=== PATIENT | male | born 1970 | race Caucasian/White ===

== ENCOUNTER → 2016-11-11 | Outpatient (CLI) | payer MEDICAID ==
[~2016-11-11] MED LIST: ABILIFY5 MG PO; ALBUTEROL2 PUFFS/17 IN; AMARYL2 MG PO; ANASTROZOLE1 MG PO; ASPIRI PO; BACLOFEN 10MG T10 MG PO; BACTRIM DS 8001 TA1 PO; BRINTELLIX10 MG PO; BROMFED DM COU473 ML PO; BUSPAR 5MG TAB5 MG PO; CARVEDILOL3.125 MG PO; CELEXA20 MG PO; CIPRO 500MG TA500 MG PO; DARVOCET-N 1001 EACH PO; DIAZEPAM10 MG PO; DICLOFENAC 50MG50 MG PO; Diclofenac Sod100 MG PO; ETODOLAC400 MG PO; FENOFIBRATE160 MG PO; FLEXERIL10 MG PO; FLOMAX 0.4MG C0.4 MG PO; HUMULIN 70100 UNITS/ SC; HYDROXYZINE50 MG PO; IBU-8800 MG PO; INSULIN GL100 UNITS/ SC; JANUMET 500 MG-1 TAB PO; KEFLEX 500MG.500 MG PO; LANSOPRAZOLE30 MG PO; LANTUS INS100 UNITS/ SC; LIPITOR40 MG PO; LIPITOR80 MG PO; LISINOPRIL 5MG T5 MG NG; MEDROL 4MG. DOSE4 MG PO; MELOXICAM15 MG PO; METFORMIN1000 MG PO; METFORMIN500 MG PO; MULTI VITAMINS1 TA1 PO; NAPROXEN SODIU500 MG PO; NITROGLYCERIN0.4 M1 SL; NORCO 325 MG-101 TAB PO; OXYBUTYNIN5 MG PO; OXYCODONE CR10 MG PO; PERCOCET 10 MG1 EACH PO; PHENERGAN 25MG.25 M1 PO; PLAVIX75 MG PO; PREDNISONE 20MG20 MG PO; PRILOSEC20 MG PO; ROBAXIN500 M1 PO; SAVELLA50 MG PO; SINGULAIR10 MG PO; TESTOSTERON200 MG/ML IM; TIZANIDINE HCL 44 MG NG; VICODIN 5/500 T1 TAB PO; VITAMIN D31000 IU PO; ZANAFLEX4 MG PO; ZYRTEC10 M3 PO
--- NOTE | 2016-11-11 16:59 | RADIOLOGY REPORT PS360 ---
EXAM: LUMBAR SPINE-2 TO 3 VIEWS HISTORY: L2 compression fracture COMPRESSION FX L2 COMPARISON: 07/09/2016 FINDINGS: Mild to moderate anterior wedge compression changes involve L2 as before with loss of height anteriorly of approximately 30% not significant change compared to the previous exam. No retropulsion evident. There remains mild anterolisthesis of L3 on L4 5 mm. Transitional segment is present in the lumbar spine as labeled as L5. Mild tilt of the pelvis with minimal lower lumbar curvature convex right. There is degenerative disc disease at T11-T12 IMPRESSION: 1. Chronic wedge compressive changes of L2 not significant changed 2. Spondylosis of the lumbar spine as described above.
--- NOTE | 2016-11-17 07:32 | RADIOLOGY REPORT PS360 ---
NUC BONE SCAN (LIMITED) CLINICAL INDICATION: Low back pain with right hip pain, L2 compression fracture COMPRESSION FX ORDERING PHYSICIAN: JAMEY VILLALOBOS PATIENT AGE: 46 years DOSE: 25.9 mCi technetium MDP IV. TECHNIQUE: AP, posterior, and lateral planar images are obtained of the lumbar spine and pelvis supplemented with axial, sagittal, and coronal SPECT images. COMPARISON: Radiograph of the same day FINDINGS: There is slight increased activity at the L2 to region. The hips have an unremarkable appearance. SPECT images show increased activity at the L2 vertebral body with also increased activity involving the facets bilaterally at L3 as well as the facets at L2 on both sides. IMPRESSION: 1. Slight increased activity at the L2 vertebral body in keeping with patient's known compression fracture at L2. The appearance of the fracture is unchanged on radiograph. 2. Increased activity involving the right and left facets at L2 and L3 consistent with facet arthritic change
== END ==
LOC: RAD 09:00
DX: S32.020A Wedge compression fracture of second lumbar vertebra, initial encounter for closed fracture (principal)
CPT/HCPCS: A9503

== ENCOUNTER → 2017-04-06 | Outpatient (CLI) | payer MEDICAID | LOC: RT 13:33 | DX: R56.9 Unspecified convulsions (principal) ==

== ENCOUNTER 2017-08-03 14:00 | Observation (INO) | payer MEDICAID ==
[~2017-08-03] VITALS: Ht 182.9 cm; Wt 122.5 kg
[2017-08-03 14:03] VITALS: BP 148/60
[2017-08-03] MEDS ORDERED: BASAGLAR K100 UNIT/1 SQ (14:10)
[2017-08-03 14:34] LABS: LYMPH # 2.2 K/mm3 (0.7-4.5); LYMPH % 37.8 % (10-50)
[2017-08-03 14:40] LABS: HEMOGLOBIN 15.8 g/dL (14.1-18.0)
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
--- OUTSIDE RECORDS SUMMARY | 2017-08-03 15:20 | External Medical Summary Rpt | CCD ---
Author Author [employer]duent Organization Conduent Address Unknown Phone Unavailable Purpose Continuity of Care Document - through 2016
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
--- OUTSIDE RECORDS SUMMARY | 2017-08-03 15:20 | External Medical Summary Rpt | CCD ---
Demographics Preferred Language Salvadorean Marital Status Unknown Evangelical Affiliation Unknown Race Unknown Ethnic Group Unknown Author Author , DAIN GAUTAM Address Unknown Phone Immunization No patient found.
--- OUTSIDE RECORDS SUMMARY | 2017-08-03 15:20 | External Medical Summary Rpt | CCD ---
Demographics Preferred Language Belgian Marital Status Unknown Baptism Affiliation Unknown Race Unknown Ethnic Group Unknown Author Author , DAIN GAUTAM Address Unknown Phone Immunization No patient found.
--- OUTSIDE RECORDS SUMMARY | 2017-08-03 15:20 | External Medical Summary Rpt ---
Author Author DAIN Avila, DAIN [place] Organization DAIN Production Address Unknown Phone Unavailable Results Comprehensive metabolic 2000 panel in Serum or Plasma Observa Value Referen Units Interpr Notes Date tion ce etation Range Albumin/G 1.1 - 1.8 No Normal No Aug 03 lobulin informati informati 2017 2:20 [Mass on in on in PM ratio] in source source Serum or data data Plasma Albumin 3.4 - 5.0 gm/dL Normal No Aug 03 [Mass/vol informati 2017 2:20 ume] in on in PM Serum or source Plasma data Alkaline 46 - 116 U/L Normal No Aug 03 phosphata informati 2016 2:20 se on in PM [Enzymati source c data activity/ volume] in Serum or Plasma Bilirubin 0.2 - 1.0 mg/dL Normal No Aug 03 .total informati 2016 2:20 [Mass/vol on in PM ume] in source Serum or data Plasma Urea 7 - 18 mg/dL High No Aug 03 nitrogen informati 2017 2:20 [Mass/vol on in PM ume] in source Serum or data Plasma Calcium 8.5 - mg/dL Normal No Aug 03 [Mass/vol 10.1 informati 2017 2:20 ume] in on in PM Serum or source Plasma data Chloride 98 - 107 mmoL/L Normal No Aug 03 [Moles/vo informati 2017 2:20 lume] in on in PM Serum or source Plasma data Carbon 21.0 - mmoL/L Normal No Aug 03 dioxide, 32.0 informati 2017 2:20 total on in PM [Moles/vo source lume] in data Serum or Plasma Creatinin 0.70 - mg/dL Normal No Aug 03 e 1.30 informati 2017 2:20 [Mass/vol on in PM ume] in source Serum or data Plasma Creatinin 50 - 200 ML/MIN Normal No Aug 03 e renal informati 2017 2:20 clearance on in PM source predicted data by Cockcroft -Gault formula Estimated >60 ML/MIN No REFERENCE Aug 03 inform RANGE: 2017 2:20 glomerula on in >60 PM r source ML/MIN/1. filtratio data 73 SQUARE n rate METERSIf (GF this patient is -A merican, then multiply theresult by 1.210. Globulin 1.3 - 3.2 gm/dL Normal No Aug 03 [Mass/vol 2016 2:20 ume] in on in PM Serum source data Glucose 74 - 106 mg/dL Normal Aug 03 [Mass/vol inform2016 2:20 ume] in on in PM Serum or source Plasma data Potassium 3.5 - 5.1 mmoL/L Normal Aug 032016 2:20 [Moles/vo on in PM lume] in source Serum or data Plasma Sodium 136 - 145 mmoL/L Normal Aug 03 [Moles/vo 2016 2:20 lume] in on in PM Serum or source Plasma data Aspartate 15 - 37 U/L Normal Aug 032016 2:20 aminotran on in PM sferase source [Enzymati data c activity/ volume] in Serum or Plasma Alanine 12 - 78 U/L Normal Aug 03 aminotran 2016 2:20 sferase on in PM [Enzymati source c data activity/ volume] in Serum or Plasma Protein 6.4 - 8.2 gm/dL Normal Aug 03 [Mass/vol 2016 2:20 ume] in on in PM Serum or source Plasma data CBC W Auto Differential panel in Blood Observa Value Referen Units Interpr Notes Date tion ce etation Range Basophils 0 - 0.2 K/MM3 Normal No Aug 032016 2:20 [#/volume on in PM ] in source Blood by data Automated count Basophils 0.1 - 2.0 % Normal No Aug 03 /100 2016 2:20 leukocyte on in PM s in source Blood by data Automated count Eosinophi 0.0 - 0.4 K/mm3 Normal Aug 03 ls 2016 2:20 [#/volume on in PM ] in source Blood by data Automated count Eosinophi 0.1 - % Normal Aug 03 ls/100 12.0 2016 2:20 leukocyte on in PM s in source Blood by data Automated count Granulocy 1.3 - 8.0 K/mm3 Normal No Aug 03 vivek 2016 2:20 [#/volume on in PM ] in source Blood by data Automated count Granulocy 37.0 - % Normal No Aug 03 vivek/100 80.0 2016 2:20 leukocyte on in PM s in source Blood by data Automated count Hematocri 42.0 - % Normal No Aug 03 t [Volume 52.0 2016 2:20 on in PM Fraction] source of Blood data Hemoglobi 14.1 - g/dL No No Aug 03 n 18.0 informati 2016 2:20 [Mass/vol on in on in PM ume] in source source Blood data data Lymphocyt 0.7 - 4.5 K/mm3 Normal No Aug 03 es 2016 2:20 [#/volume on in PM ] in source Unspecifi data ed specimen by Automated count Lymphocyt 10 - 50 % Normal No Aug 03 es 2016 2:20 [#/volume on in PM ] in source Unspecifi data ed specimen by Automated count Erythrocy 27 - 31.2 pg Normal No Aug 03 te mean 2016 2:20 corpuscul on in PM ar source hemoglobi data n [Entitic mass] Erythrocy 31.8 - g/dl Normal No Aug 03 te mean 35.4 2016 2:20 corpuscul on in PM ar source hemoglobi data n concentra tion [Mass/vol ume] by Automated count Erythrocy 82.2 - fl Normal No Aug 03 te mean 97.8 2016 2:20 corpuscul on in PM ar volume source [Entitic data volume] by Automated count Monocytes 0.1 - 1.0 K/mm3 Normal No Aug 032016 2:20 [#/volume on in PM ] in source Blood by data Automated count Monocytes 1.7 - 9.3 % Normal No Aug 03 /100 informati 2016 2:20 leukocyte on in PM s in source Blood by data Automated count Platelet 7.4 - fl Normal No Aug 03 mean 10.4 2016 2:20 volume on in PM [Entitic source volume] data in Blood by Automated count Platelets 142 - 424 K/mm3 No No Aug 03 informati informati 2016 2:20 [#/volume on in on in PM ] in source source Blood data data Erythrocy 4.6 - 6.2 M/mm3 Normal No Aug 03 vivek ati 2017 2:20 [#/volume on in PM ] in source Amniotic data fluid Erythrocy 11.5 - % Normal No Aug 03 te 17.5 informati 2017 2:20 distribut on in PM ion width source [Entitic data volume] by Automated count Leukocyte 4.8 - K/MM3 Normal No Aug 03 s 10.8 informati 2017 2:20 [#/volume on in PM ] in source Blood data
--- OUTSIDE RECORDS SUMMARY | 2017-08-03 15:20 | External Medical Summary Rpt ---
Author Author DAIN Avila, DAIN [place] Organization DAIN Production Address Unknown Phone Unavailable [...]
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
--- OUTSIDE RECORDS SUMMARY | 2017-08-03 16:33 | External Medical Summary Rpt | CCD ---
Demographics Preferred Language Citizen Of [place] Marital Status Unknown Amish Affiliation Unknown Race Unknown Ethnic Group Unknown Author Author , DAIN GAUTAM Address Unknown Phone Immunization No patient found.
--- OUTSIDE RECORDS SUMMARY | 2017-08-03 16:33 | External Medical Summary Rpt | CCD ---
Demographics Preferred Language Maltese Marital Status Unknown Jainism Affiliation Unknown Race Unknown Ethnic Group Unknown Author Author , DAIN GAUTAM Address Unknown Phone Immunization No patient found.
--- OUTSIDE RECORDS SUMMARY | 2017-08-03 16:33 | External Medical Summary Rpt | CCD ---
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 Role Phone Lillian Tan MD, Unavailable Unavailable Lillian Tan MD Purpose Continuity of Care Document - 06-21-2013 through 2016 Problems Code Diagnosis DOS Provider Status 250.00 250.00 DIAB 06-21-2013 [facility], TYPE Hospital II OR UNSPEC TYPE, NOT UNCNTRLD 272.4 272.4 06-21-2013 [place] HYPERLIPIDE [facility] NEC/NOS Hospital 401.9 401.9 06-21-2013 [place] HYPERTENSIO [facility] N NOS Hospital 412 412 OLD 06-21-2013 [place] MYOCARDIAL [facility] INFARCT Hospital 413.9 413.9 06-21-2013 [place] ANGINA [facility] PECTORIS [facility] NEC/NOS 995.1 995.1 06-21-2013 [place] ANGIONEUROT [facility] IC EDEMA Hospital E928.9 E928.9 06-21-2013 [place] ACCIDENT [facility] V12.54 V12.54 06-21-2013 [place] PERSONAL HX [facility] OF TIA,& Hospital CEREBRAL INFARCTION W/OUT RES DEFICITS V14.8 V14.8 06-21-2013 [facility]-DRUG [facility] ALLERGY [facility] Hospital V45.89 V45.89 06-21-2013 [place] POSTSURGICA [facility] V58.67 V58.67 06-21-2013 [place] LONG-TERM [facility] (CURRENT) Hospital USE OF INSULIN V58.69 V58.69 OTH 06-21-2013 [place] [facility],LT,CURR [facility] ENT USE Hospital J06.9 ACUTE UPPER [...] Tan MD (ER) 3 14:31 3 15:18 [facility]
--- OUTSIDE RECORDS SUMMARY | 2017-08-03 16:34 | External Medical Summary Rpt ---
Author Author DAIN Avila, DAIN [employer] Address Unknown Phone Unavailable Results Comprehensive [...]
--- OUTSIDE RECORDS SUMMARY | 2017-08-03 16:34 | External Medical Summary Rpt ---
Author Author DAIN Avila, DAIN [employer] Address Unknown Phone Unavailable [...]
[2017-08-03 17:45] VITALS: BP 127/60
[2017-08-03 19:52] VITALS: BP 130/88
[2017-08-03 20:20] VITALS: BP 130/88
[2017-08-04] VITALS (15 sets, daily range): BP systolic 129–201; BP diastolic 55–116
[2017-08-04] MEDS ORDERED: LIPITOR40 MG PO (01:52)
[2017-08-04] MEDS ORDERED: LISINOPRIL 10MG10 MG PO (02:04)
[2017-08-04] MEDS ORDERED: GABAPENTIN300 MG PO (02:05)
[2017-08-04] MEDS ORDERED: OMEPRAZOLE40 MG PO (02:05)
[2017-08-04] MEDS ORDERED: MELOXICAM15 MG PO (02:06)
[2017-08-04] MEDS ORDERED: BRINTELLIX10 MG PO (02:10)
[2017-08-04] MEDS ORDERED: ZOFRAN4 MG PO (02:11)
[2017-08-04] MEDS ORDERED: SYMBICORT1 AE1 IH (02:12)
[2017-08-04 06:59] LABS: HEMOGLOBIN 14.5 g/dL (14.1-18.0); LYMPH # 2.4 K/mm3 (0.7-4.5)
--- NOTE | 2017-08-04 07:14 | PHARMACY CLINIC NOTE ---
Patient Demographics Patient Demographics Admission date: 08/03/17 Date: 08/04/17 Time: 0713 Allergies Coded Allergies: duloxetine (From CYMBALTA) (Intermediate, I-HIVES 06/23/16) Penicillins (Mild, 10/26/15) gemfibrozil (From LOPID) (Mild, 10/26/15) phenytoin (From DILANTIN) (Mild, 10/26/15) HEIGHT- FT: 6 IN: 0.00 K.134 VTE General Information Labs: Laboratory Tests 08/04 08/03 0605 1420 Hematology Hgb (14.1 - 18.0 g/dL) 14.5 15.8 Hct (42.0 - 52.0 %) 42.0 46.1 Plt Count (142 - 424 K/mm3) 160 172 Disclaimer The following section includes nursing documentation that has been pulled in for pharmacy review. Patient's VTE score: 4 Patient's VTE Risk: LOW RISK Clinical trial participant? No VTE prophylaxis NQF [id number] VTE prophylaxis ordered? Yes Type of prophylaxis/treatment: MARSHA Rodriguez at 0713
[2017-08-04] MEDS ORDERED: ARIPIPRAZOLE10 MG PO (07:33)
--- NOTE | 2017-08-04 08:33 | HISTORY AND PHYSICAL REPORT ---
Demographics: Admit date: 08/03/17 Chief complaint: pt with chest pain PRIMARY DIAGNOSIS: UNSTABLE ANGINA Allergies: Coded Allergies: duloxetine (From CYMBALTA) (Intermediate, I-HIVES 06/23/16) Penicillins (Mild, 10/26/15) gemfibrozil (From LOPID) (Mild, 10/26/15) phenytoin (From DILANTIN) (Mild, 10/26/15) Past medical history: Family HX Diabetes Yes CAD Yes Hypertension Yes Hyperlipidemia No Cancer Yes TB No Immunization HX Ped.Immunizations UTD Yes DT/Tetanus 5-10 Years Ago Flu 2015-FSN Pneumonia Received In Past TB Test in last year No General CAD? Yes Angina: Yes DC: Yes Hypertension? Yes Hyperlipidemia? Yes CHF? No DVT? No PE? No COPD? Yes Asthma? No Anemia? No GERD? Yes Gastric ulcers? No GI Bleed? No Hernia? Yes Thyroid Problems? No Hypothyroidism? No CVA? Yes Seizures? Yes Diabetes? Yes Insulin Dependent: Yes Insulin Pump: No Home FSBS? Yes Renal Insuffiency? No UTI? No Stones? Yes BPH? Yes GB Disease: Yes Nephritic Syndrome? No Asplenia? No Hepatitis? No Sickle Cell Disease? No Arthritis? Yes Migraines? Yes Cataracts? No Glaucoma? Yes MRSA? Yes HIV? No TB? No Anxiety? Yes Depression? Yes Cancer? No More? Yes Additional hx: BIPOLAR, ODD SCHIZOPHRENIA Current home meds: Reported Medications Montelukast Sodium (Singulair) 10 MG PO QHS Fenofibrate (Fenofibrate 160MG (GEQ: Lofibra)) 134 MG PO DAILY Buspirone Hcl (Buspirone HCl) 15 MG PO TID TAMSULOSIN HCL (Flomax 0.4MG) 0.4 MG PO QHS Insulin Glargine,Hum.rec.anlog (Basaglar Kwikpen U-100) 20 UNIT SQ QHS #15 Atorvastatin Calcium (Atorvastatin) 20 MG PO DAILY LISINOPRIL (Lisinopril) 10 MG PO DAILY Gabapentin (Gabapentin 300MG) 300 MG PO TID Omeprazole (Omeprazole 40MG) 40 MG PO DAILY Meloxicam (Meloxicam 15MG) 15 MG PO DAILY Vortioxetine Hydrobromide (Brintellix) 10 MG PO QPM ONDANSETRON HCL (Zofran 4MG Tab) 4 MG PO TIDP PRN NAUSEA BUDESONIDE/FORMOTEROL FUMARATE (Symbicort 160-4.5 Mcg Inhaler) 2 PUFF IH DAILY Aripiprazole 10 MG PO QHS #30 Aspirin (Chewable Aspirin) 81 MG PO DAILY Carvedilol (Carvedilol 3.125MG) 3.125 MG PO BID Nitroglycerin 0.4 MG SL PRN Social Hx: Smoking HX Tobacco No Packs/day N/A Are you/the child exposed to second-hand smoke: Yes Alcohol Alcohol: Yes How much do you drink LIQUOR ON THE WEEKENDS For how long Longer Than 5 Years When was your last drink 48-72 Hours Ago Hx of Drug Use Drug Use? No
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
--- NOTE | 2017-08-04 11:56 | RADIOLOGY REPORT PS360 ---
CARDIAC CATHETERIZATION DATE OF CATHETERIZATION:08/04/2017 11:14 AM PROCEDURES: 1. Left heart catheterization 2. Left ventriculogram 3. Selective coronary angiogram 4. Drug-eluting stent deployment to the distal dominant right coronary INDICATION FOR TEST: 1. Unstable angina 2. Known coronary artery disease Informed consent was obtained prior to the procedure. COMPLICATIONS: None ESTIMATED BLOOD LOSS: Less than 10 ml. TECHNIQUE: One percent lidocaine used to anesthetize the right anterior aspect of the wrist. The right radial artery was accessed via the Seldinger technique. A 6 Portuguese sheath was placed in the right radial artery. 2.5 mg of verapamil, 800 mcg of nitroglycerin and 5000 U Heparin were given through the arterial sheath. The trap catheter was used to perform left heart catheterization left ventriculogram and selective coronary angiogram. At the end of the diagnostic angiogram and additional 7000 units of heparin was administered intravenously giving an ACT out of range. An [employer] right guide catheter was used intubate the right coronary artery and a BMW wire was placed distally. A 3 mm x 18 mm resolute Gerhard stent was deployed at 20 jyotsna reducing the ruptured plaque to 0%. Adequate apposition was not achieved therefore 3.5 x 8 mm compliant balloon was placed proximally and deployed at 24 jyotsna in both the proximal and mid segment to further expand the stent and provide better proximal apposition. At the end of procedure the sheath was removed patient transferred the postop holding area in stable condition ANGIOGRAPHIC RESULTS: 1. The left main artery normal 2. The left anterior descending artery has proximal 20% stenoses and mid vessel 20% stenoses 3. The circumflex artery is a nondominant vessel with mild mid vessel vascular ectasia no focal stenosis greater than 10-20% 4. The right coronary artery is a large dominant vessel and has mild luminal irregularities of 10% in the mid segment with a hazy ruptured plaque in the distal segment creating a 50-60% stenosis 5. The [place] ventriculogram reveals normal 65% 6. The left ventricular end-diastolic pressure elevated at 30 mmHg IMPRESSION: 1. Acute coronary syndrome ruptured plaque in the distal dominant right coronary artery producing patient's unstable angina symptoms 2. 50-60% culprit stenosis causing the acute coronary syndrome reduced to 0% with 1 drug-eluting stent in the distal dominant right coronary artery 3. Normal ejection fraction 4. Moderately elevated LVEDP PLAN: 1. Brilinta and aspirin 2. LDL less than 55 3. Risk factor modification 4. Avoidance of tobacco products 5. Patient needs diuresis in order to decrease LVEDP 6. Sleep study due to presumed obstructive sleep apnea 7. Cardiac rehabilitation
[2017-08-04] MEDS ORDERED: TIZANIDINE HCL 44 MG NG (14:14)
[2017-08-04] MEDS ORDERED: TRAZODONE150 MG PO (14:14)
[2017-08-05] VITALS (8 sets, daily range): BP systolic 121–148; BP diastolic 60–92
--- NOTE | 2017-08-05 08:10 | ACUTE CARE PROGRESS NOTE (QUA) ---
Progress Notes Subjective Date 08/05/17 Time 0805 Note 47 yo WM in bed in NAD. No chest pressure or heaviness since stents placed. Objective Findings Last VS-Temp:98.4 B/P:137/82 Pulse:62 Resp:20 SaO2:96 ROOM AIR Last weight lbs:270 oz:0 K.47 Method:Floor Scales Exam General appearance: alert, awake, no acute distress Cardiovascular: regular rate & rhythm Respiratory: clear to auscultation Reviewed: medications, vital signs, lab results Assessment/Plan Problem List 1. Unstable angina 2. Stented coronary artery 3. CAD (coronary artery disease) Assessment/Plan: On DAPT and statin. Qualifiers: Coronary Disease-Associated Artery/Lesion type: [place] artery [place] vs. transplanted heart: [place] heart Associated angina: with unstable angina Qualified Code: I25.110 - Atherosclerotic heart disease of [place] coronary artery with unstable angina pectoris 4. Hypertension Assessment/Plan: On triple therapy with SAY, CCB and BB. Qualifiers: Hypertension type: essential hypertension Qualified Code: I10 - Essential ( primary) hypertension Patient condition Stable Plan: STable from cardiology standpoint for discharge home. Continue ASA, Brilinta, Coreg, Lisinopril, amlodipine and atorvastatin. Follow up in one week. This inpt stay is expected to cross 2 MNs from start of care Yes at 0809
--- NOTE | 2017-08-05 08:10 | ACUTE CARE PROGRESS NOTE (QUA) ---
Progress Notes Subjective Date 08/05/17 Time 0805 Note 47 yo WM in bed in NAD. No chest pressure or heaviness since stents placed. Objective Findings Last VS-Temp:98.4 B/P:137/82 Pulse:62 Resp:20 SaO2:96 ROOM AIR Last weight lbs:270 oz:0 K.47 Method:Floor Scales Exam General appearance: alert, awake, no acute distress Cardiovascular: regular rate & rhythm Respiratory: clear to auscultation Reviewed: medications, vital signs, lab results Assessment/Plan Problem List 1. Unstable angina 2. Stented coronary artery 3. CAD (coronary artery disease) Assessment/Plan: On DAPT and statin. Qualifiers: Coronary Disease-Associated Artery/Lesion type: [place] artery [place] vs. transplanted heart: [place] heart Associated angina: with unstable angina Qualified Code: I25.110 - Atherosclerotic heart disease of [place] coronary artery with unstable angina pectoris 4. Hypertension Assessment/Plan: On triple therapy with SAY, CCB and BB. Qualifiers: Hypertension type: essential hypertension Qualified Code: I10 - Essential ( primary) hypertension Patient condition Stable Plan: STable from cardiology standpoint for discharge home. Continue ASA, Brilinta, Coreg, Lisinopril, amlodipine and atorvastatin. Follow up in one week. This inpt stay is expected to cross 2 MNs from start of care Yes at 0809
[2017-08-05] MEDS ORDERED: BRILINTA90 MG PO (09:54)
[2017-08-05] MEDS ORDERED: AMLO5TAB PO (09:54)
--- NOTE | 2017-08-05 09:56 | ACUTE CARE PROGRESS NOTE (QUA) ---
Progress Notes Subjective Date 08/05/17 Time 0954 Patient/family reports: feeling better, no complaints Nursing reports: alert, no complaints Objective Findings Laboratory Tests 08/05/17 0630: POC Glucose 92 08/05/17 0520: Sodium 139, Potassium 3.4 L, Chloride 104, Carbon Dioxide 28, BUN 11, Creatinine 1.2, Estimated Creat Clear 126, Estimated GFR (MDRD) 65, Glucose 101, Calcium 8.9 08/04/17 2037: POC Glucose 98 08/04/17 1804: POC Glucose 101 08/04/17 1136: POC Activ Clotting Time >400 *H Vital Signs Date Time Temp Pulse Resp B/P Pulse O2 O2 Flow FiO2 Ox Delivery Rate 08/05 08 98.4 78 18 121/91 95 ROOM AIR 08/05 0600 98.4 62 20 137/82 96 ROOM AIR 08/05 0440 97.6 81 18 131/60 96 08/05 0400 97.6 79 20 131/60 99 ROOM AIR 08/05 0200 98.0 60 17 126/86 95 ROOM AIR 08/05 0000 97.9 57 21 132/86 96 ROOM AIR 08/04 2200 98.3 68 22 129/55 95 ROOM AIR 08/04 2015 98.3 72 12 145/55 97 08/04 2000 98.0 08/04 1905 98.2 76 16 158/89 96 08/04 1705 70 18 196/103 96 08/04 1605 69 18 194/116 98 08/04 1600 98.2 76 16 158/89 96 08/04 1505 69 18 201/99 97 08/04 1505 79 18 169/95 97 08/04 1435 70 18 153/89 98 08/04 1405 68 18 194/108 98 08/04 1335 72 16 172/114 97 08/04 1305 68 16 168/104 97 08/04 1250 56 16 161/81 96 08/04 1235 55 16 145/76 96 08/04 1229 68 16 157/95 08/04 1228 98.2 68 16 157/95 96 ROOM AIR 08/04 1209 72 16 143/84 96 ROOM AIR 08/04 1208 70 16 157/90 96 ROOM AIR 08/04 1208 77 18 119/60 97 ROOM AIR 08/04 1208 86 18 105/50 96 ROOM AIR 08/04 1205 98.2 71 18 157/90 97 08/04 1121 20 08/04 1109 20 Current Medications Amlodipine Besylate 0 .STK-MED ONE .ROUTE (DC) Furosemide 0 .STK-MED ONE .ROUTE (DC) Potassium Chloride 0 .STK-MED ONE PO (DC) Loperamide HCl 0 .STK-MED ONE PO (DC) Lisinopril 0 .STK-MED ONE .ROUTE (DC) Loperamide HCl 4 MG ONCE ONE PO (DC) Amlodipine Besylate 5 MG DAILY PO Lisinopril 10 MG DAILY PO Potassium Chloride 40 MEQ ONCE ONE PO (DC) Furosemide 40 MG DAILY PO Iopamidol 100 ML ONCE ONE IV (DC) Heparin Sodium (Beef Lung) 0 .STK-MED ONE .ROUTE (DC) Ondansetron HCl 0 .STK-MED ONE .ROUTE (DC) Diphenhydramine HCl 50 MG ONCE ONE IV (DC) Fentanyl Citrate 25 MCG Q3MINP PRN IV (DC) Fentanyl Citrate 50 MCG Q3MINP PRN IV (DC) Flumazenil 0.2 MG PRN PRN IV (DC) Heparin Sodium (Beef Lung) 5,000 UNITS PRN PRN IV (DC) Heparin Sodium/Sodium Chloride 3,000 UNITS PRN PRN IV (DC) Lidocaine HCl 20 ML ONCE ONE IJ (DC) Midazolam HCl 1 MG Q3MINP PRN IV (DC) Midazolam HCl 1 MG Q3MINP PRN IV (DC) Naloxone HCl 0.4 MG [id number] PRN IV (DC) Nitroglycerin 800 MCG PRN PRN IV (DC) Sodium Chloride 10 ML PRN PRN IV Sodium Chloride 1,000 ML .Q25H IV Verapamil HCl 5 MG PRN PRN IV (DC) Aspirin 81 MG DAILY PO Atorvastatin Calcium 40 MG DAILY PO Enoxaparin Sodium 120 MG Q12 SC Ticagrelor 90 MG BID PO Carvedilol 3.125 MG BID PO Insulin Glargine 20 UNITS QHS SC Montelukast Sodium 10 MG QHS PO Tamsulosin HCl 0.4 MG QHS PO Diagnostic Test (Pha) 1 EACH W/MEALS&HS FS Insulin Human [rDNA origin] SEE ADMIN CRITERIA FOR LOW INTENSITY SS W/MEALS&HS SC Nitroglycerin 0.4 MG PRN PRN SL Ondansetron HCl 4 MG Q6HP PRN IV Sodium Chloride 1,000 ML .Q25H IV (DC) Sodium Chloride 10 ML PRN PRN IV Sodium Chloride 10 ML PRN PRN IV (DC) Sodium Chloride 10 ML PRN PRN IV (DC) Last VS-Temp:98.4 B/P:121/91 Pulse:78 Resp:18 SaO2:95 ROOM AIR Last weight lbs:270 oz:0 K.47 Method:Floor Scales Exam General appearance: normal appearance, alert, active, no acute distress Eyes: normal exam ENT: normal exam Neck: normal inspection, no carotid bruit, full range of motion Cardiovascular: normal exam, no JVD, regular rate & rhythm, normal peripheral pulses Respiratory: normal exam, aerating well, clear to auscultation, chest non- tender, good air movement ABD: normal exam, normal bowel sounds, soft, no tenderness Genitourinary: normal voiding & quantity Extremities: normal exam, moves all, warm Musculoskeletal: normal exam Skin: normal exam, intact, warm Neuro: normal exam, alert, intact, oriented Reviewed: allergies, medications, vital signs, lab results, radiology report, consult note Assessment/Plan Problem List 1. Unstable angina 2. Stented coronary artery 3. CAD (coronary artery disease) Qualifiers: Coronary Disease-Associated Artery/Lesion type: [place] artery [place] vs. transplanted heart: [place] heart Associated angina: with unstable angina Qualified Code: I25.110 - Atherosclerotic heart disease of [place] coronary artery with unstable angina pectoris 4. Hypertension Qualifiers: Hypertension type: essential hypertension Qualified Code: I10 - Essential ( primary) hypertension Patient condition Stable Plan: initiate discharge plan This inpt stay is expected to cross 2 MNs from start of care Yes Comments: rounded with breonna bridgett tomorrow with pcp next week with [facility]. [facility] home today at 0956
--- NOTE | 2017-08-05 10:00 | DISCHARGE SUMMARY STANDARD ---
Demographics Admit date: 08/03/17 Discharge date: 08/05/17 History of present illness History of present illness 47 yo WM with known CAD, previous RI's and stents and diabetes was admitted through the ER for recurrent chest pains over the last several days. Symptoms improved with NTG and ASA today but have not resolved. Troponins have returned normal thus far but Cardiology consulted due to history and continued symptoms. Hospital Course Hospital Course: cardiology consult, heart cath cath report:IMPRESSION: 1. Acute coronary syndrome ruptured plaque in the distal dominant right coronary artery producing patient's unstable angina symptoms 2. 50-60% culprit stenosis causing the acute coronary syndrome reduced to 0% with 1 drug-eluting stent in the distal dominant right coronary artery 3. Normal ejection fraction 4. Moderately elevated LVEDP PLAN: 1. Brilinta and aspirin 2. LDL less than 55 3. Risk factor modification 4. Avoidance of tobacco products 5. Patient needs diuresis in order to decrease LVEDP 6. Sleep study due to presumed obstructive sleep apnea 7. Cardiac rehabilitation pt will follow up with pcp in am and cardiology in 1 week Discharge diagnoses Problem List 1. Unstable angina 2. Stented coronary artery 3. CAD (coronary artery disease) 4. Hypertension Medications Medications: Discharge meds are as noted. Follow up Follow up in office in: 7 DAYS with: Sanjiv Tirado MD Comment: rounded with breonna at 1000
== END 2017-08-05 10:14 | disposition home or self-care (01) ==
LOC: ER 14:00 → 2ND 16:29 → ICU 17:05 → 2ND 17:05 → ICU 08-04 17:34
PROVIDERS: Emergency Medicine; Internal Medicine
PROC: 027034Z Dilation of Coronary Artery, One Artery with Drug-eluting Intraluminal Device, Percutaneous Approach (ICD-10-PCS; 2017-08-04)
PROC: B2111ZZ Fluoroscopy of Multiple Coronary Arteries using Low Osmolar Contrast (ICD-10-PCS; 2017-08-04)
PROC: B2151ZZ Fluoroscopy of Left Heart using Low Osmolar Contrast (ICD-10-PCS; 2017-08-04)
PROC: 4A023N7 Measurement of Cardiac Sampling and Pressure, Left Heart, Percutaneous Approach (ICD-10-PCS; principal; 2017-08-04 10:00)
DX: I25.110 Atherosclerotic heart disease of native coronary artery with unstable angina pectoris (principal); I25.83 Coronary atherosclerosis due to lipid rich plaque; Z72.0 Tobacco use; Z95.5 Presence of coronary angioplasty implant and graft; I10 Essential (primary) hypertension; E11.9 Type 2 diabetes mellitus without complications
CPT/HCPCS: C1725; C1760; C1769; C1876; G0378; J1644; Q9967

== ENCOUNTER 2017-08-06 20:04 | Emergency (ER) | payer MEDICAID ==
[~2017-08-06] VITALS: Ht 182.9 cm; Wt 117.9 kg
[~2017-08-06 20:04] MED LIST changes: +AMLO5TAB PO; +ARIPIPRAZOLE10 MG PO; +BASAGLAR K100 UNIT/1 SQ; +BRILINTA90 MG PO; +GABAPENTIN300 MG PO; +LISINOPRIL 10MG10 MG PO; +OMEPRAZOLE40 MG PO; +SYMBICORT1 AE1 IH; +TRAZODONE150 MG PO; +ZOFRAN4 MG PO
--- OUTSIDE RECORDS SUMMARY | 2017-08-06 20:29 | External Medical Summary Rpt | CCD ---
Author Author , DAIN GAUTAM Address Unknown Phone Care Team Providers Care Contract Associate Manager Name Role Phone [facility] Unavailable Unavailable [facility], [facility] MAIKEL Tan MD, Unavailable Unavailable Lillian Tan MD [facility] # Unavailable Unavailable [id number], [facility] # [id number] [facility] # Unavailable Unavailable [id number], [facility] # [id number] [facility] Unavailable Unavailable PHARMACY Purpose Continuity of Care Document - 11-22-2009 through 2016 Problems Code Diagnosis DOS Provider Status 250.00 250.00 DIAB 06-21-2013 [facility] COMPL, TYPE Hospital II OR UNSPEC TYPE, NOT UNCNTRLD 272.4 272.4 06-21-2013 [place] HYPERLIPIDE [facility] NEC/NOS Hospital 401.9 401.9 06-21-2013 [place] HYPERTENSIO [facility] N NOS Hospital 412 412 OLD 06-21-2013 [place] MYOCARDIAL [facility] INFARCT Hospital 413.9 413.9 06-21-2013 [place] ANGINA [facility] PECTORIS [facility] NEC/NOS 995.1 995.1 06-21-2013 [place] ANGIONEUROT [facility] IC EDEMA Hospital E928.9 E928.9 06-21-2013 [place] ACCIDENT [facility] Hospital V12.54 V12.54 06-21-2013 [place] PERSONAL HX [facility] OF TIA,& Hospital CEREBRAL INFARCTION W/OUT RES DEFICITS V14.8 V14.8 06-21-2013 [place] HX-DRUG [facility] ALLERGY [facility] V45.89 V45.89 06-21-2013 [place] POSTSURGICA [facility] V58.67 V58.67 06-21-2013 [place] LONG-TERM [facility] (CURRENT) Hospital USE OF INSULIN V58.69 V58.69 OTH 06-21-2013 [place] [facility] I20.0 UNSTABLE ANGINA J06.9 ACUTE UPPER RESPIRATORY INFECTION, UNSPECIFIED M47.816 [...] ou ys ag ar # ys at rm s nt no ma ic us Or Da si cy ia de te s n re d SO 00 10 0 No ADRIANA 00 -2 -M 90 3- Lo ED 04 20 ng RO 72 13 er L 2 12 Ac 5 ti MG ve AL ME 23 10 10 2 60 30 WA 71 RA Ac TF 15 -2 -2 .0 L- 40 O ti OR 50 6- 9- 00 MA 49 PA ve AK 10 20 20 RT 0 DM N 41 11 11 A HC 0 PH G L AR 1, MA 00 CY 0 # MG 10 TA 05 BL 91 ET BA 00 10 10 2 60 30 WA 71 OC Ac CL 83 -2 -2 .0 L- 40 ON ti OF 21 5- 6- 00 MA 44 NE ve EN 02 20 20 RT 9 LL 40 11 11 10 9 PH WOODROW AR HN MG MA CY TA # BL ET 10 05 91 GL 54 10 10 2 30 30 WA 71 RA Ac IM 45 -2 -2 .0 L- 40 O ti EP 80 6- 6- 00 MA 48 PA ve IR 96 20 20 RT 5 DM ID 71 11 11 A E 0 PH G 2 AR MG MA CY TA # BL ET 10 05 91 LA 00 10 10 2 10 30 WA 71 RA Ac NT 08 -2 -2 .0 L- 40 O ti US 82 6- 6- 00 MA 48 PA ve 22 20 20 RT 8 DM 10 03 11 11 A 0 3 PH G UN AR IT MA /M CY L # AL 10 05 91 LI 68 10 10 2 30 30 WA 71 RA Ac SI 18 -2 -2 .0 L- 40 O ti NO 00 6- 6- 00 MA 48 PA ve NJ 51 20 20 RT 9 DM IL 20 11 11 A 1 PH G 2. AR 5 MA MG CY # TA BL 10 OX 53 10 10 0 12 30 WA 22 OC Ac YC 74 -0 -2 0. L- 20 ON ti OD 60 5- 5- 00 MA 69 NE ve ON 20 20 20 0 RT 2 LL E- 40 11 11 AC 1 PH WOODROW ET AR HN AM MA IN CY OP # HE N 10 10 05 -3 91 25 SA 00 08 10 5 60 30 FL 71 OC Ac VE 45 -1 -2 .0 L- 30 ON ti LL 61 1- 5- 00 MA 61 NE ve A 55 20 20 RT 9 LL 50 06 11 11 0 PH WOODROW MG AR HN MA TA CY BL # ET 06 03 91 DI 00 08 10 5 90 30 WA 44 OC Ac AZ 59 -1 -2 .0 L- 95 ON ti EP 15 1- 4- 00 MA 54 NE ve AM 62 20 20 RT 4 LL 00 11 11 10 5 PH WOODROW AR HN MG MA CY TA # BL ET 10 05 91 00 08 10 2 60 30 WA 71 OC Ac 37 -1 -2 .0 L- 30 ON ti 80 1- 4- 00 MA 61 NE ve 75 20 20 RT 7 LL 19 11 11 3 PH WOODROW AR HN MA CY # 10 05 91 AK 13 08 10 5 30 30 WA 71 OC Ac RT 10 -1 -2 .0 L- 30 ON ti AZ 70 1- 4- 00 MA 61 NE ve AP 03 20 20 RT 8 LL IN 13 11 11 E 4 PH WOODROW 15 AR HN MA MG CY # TA BL 10 ET 05 91 IN 00 10 10 2 75 12 WA 71 OC Ac DO 37 -0 -2 .0 L- 37 ON ti ME 80 5- 4- 00 MA 97 NE ve TH 14 20 20 RT 8 LL AC 30 11 11 IN 1 PH WOODROW AR HN 25 MA CY MG # CA 10 PS 05 UL 91 E CI 55 06 10 2 60 30 WA 71 RA Ac TA 11 -2 -2 .0 L- 24 O ti LO 10 3- 4- 00 MA 32 PA ve NJ 34 20 20 RT 3 DM AM 43 11 11 A 0 PH G HB AR R MA 40 CY # MG 10 TA 05 BL 91 ET NJ 37 10 10 2 30 30 WA 88 RA Ac IL 00 -2 -2 .0 L- 18 O ti OS 00 4- 4- 00 MA 99 PA ve EC 45 20 20 RT 5 DM 50 11 11 A OT 4 PH G C AR 20 MA .6 CY # MG 10 TA 05 BL 91 ET ME 23 10 10 0 14 7 WA 71 RA Ac TF 15 -2 -2 .0 L- 40 O ti OR 50 1- 1- 00 MA 02 PA ve AK 10 20 20 RT 5 DM N 41 11 11 A HC 0 PH G L AR 1, MA 00 CY 0 # MG 10 TA 05 BL 91 ET LI 68 10 10 0 7[address] Ac SI 18 -2 -2 00 L- 40 AN ti NO 00 1- 1- 0 MA 02 TO ve NJ 51 20 20 RT 4 N IL 40 11 11 DO 1 PH NN 10 AR A MA D MG CY # TA BL 10 ET 05 91 DI 00 10 10 5 30 30 WA 71 OC Ac CL 09 -0 -1 .0 L- 37 ON ti OF 31 5- 3- 00 MA 97 NE ve EN 04 20 20 RT 9 LL AC 10 11 11 1 PH WOODROW SO AR HN D MA ER CY # 10 0 10 MG 05 91 TA B CL 00 10 10 5 90 30 WA 44 OC Ac ON 37 -0 -0 .0 L- 96 ON ti AZ 81 5- 6- 00 MA 73 NE ve EP 91 20 20 RT 4 LL AM 40 11 11 2 1 PH WOODROW AR HN MG MA CY TA # BL ET 10 05 91 IN 00 10 10 2 75 12 WA 71 OC Ac DO 37 -0 -0 .0 L- 37 ON ti ME 80 5- 6- 00 MA 97 NE ve TH 14 20 20 RT 8 LL AC 30 11 11 IN 1 PH WOODROW AR HN 25 MA CY MG # CA 10 PS 05 UL 91 E OX 53 09 09 0 90 30 WA 22 OC Ac YC 74 -2 -2 .0 L- 20 ON ti OD 60 7- 8- 00 MA 58 NE ve ON 20 20 20 RT 5 LL E- 40 11 11 AC 1 PH WOODROW ET AR HN AM MA IN CY OP # HE N 10 10 05 -3 91 25 DI 00 08 09 5 90 30 WA 44 OC Ac AZ 17 -1 -2 .0 L- 95 ON ti EP 23 1- 7- 00 MA 54 NE ve AM 92 20 20 RT 4 LL 78 11 11 10 0 PH WOODROW AR HN MG MA CY TA # BL ET 10 05 91 AK 13 08 09 5 30 30 WA 71 OC Ac RT 10 -1 -2 .0 L- 30 ON ti AZ 70 1- 7- 00 MA 61 NE ve AP 03 20 20 RT 8 LL IN 13 11 11 E 4 PH WOODROW 15 AR HN MA MG CY # TA BL 10 ET 05 91 BA 00 02 09 4 60 30 FL 71 OC Ac CL 83 -1 -1 .0 L- 16 ON ti OF 21 0- 6- 00 MA 37 NE ve EN 02 20 20 RT 7 LL 40 11 11 10 9 PH WOODROW AR HN MG MA CY TA # BL ET 10 05 91 00 08 09 2 60 30 FL 71 OC Ac 37 -1 -1 .0 L- 30 ON ti 80 1- 6- 00 MA 61 NE ve 75 20 20 RT 7 LL 19 11 11 3 PH WOODROW AR HN MA CY # 10 05 91 SA 00 08 09 5 60 30 WA 71 OC Ac VE 45 -1 -1 .0 L- 30 ON ti LL 61 1- 6- 00 MA 61 NE ve A 55 20 20 RT 9 LL 50 06 11 11 0 PH WOODROW MG AR HN MA TA CY BL # ET 10 GL 54 06 09 2 30 30 FL 71 RA Ac IM 45 -2 -1 .0 L- 24 O ti EP 80 3- 6- 00 MA 32 PA ve IR 96 20 20 RT 2 DM ID 71 11 11 A E 0 PH G 2 AR MG MA CY TA # BL ET 10 05 91 ME 23 06 09 2 60 30 FL 71 RA Ac TF 15 -2 -1 .0 L- 24 O ti OR 50 3- 6- 00 MA 32 PA ve AK 10 20 20 RT 5 DM N 41 11 11 A HC 0 PH G L AR 1, MA 00 CY 0 # MG 10 TA 05 BL 91 ET SI 68 09 09 0 30 30 WA 71 RA Ac MV 38 -1 -1 .0 L- 35 O ti 20 6- 6- 00 MA 20 PA ve TA 06 20 20 RT 5 DM TI 70 11 11 A N 5 PH G 20 AR MA MG CY # TA BL 10 ET 05 91 NJ 37 06 09 2 30 30 WA 88 RA Ac IL 00 -2 -1 .0 L- 18 O ti OS 00 3- 6- 00 MA 26 PA ve EC 45 20 20 RT 4 DM 50 11 11 A OT 4 PH G C AR 20 MA .6 CY # MG 10 TA 05 BL 91 ET LI 54 09 09 0 [address] Ac SI 45 -1 -1 .0 L- 35 AN ti NO 80 6- 6- 00 MA 20 TO ve NJ 99 20 20 RT 6 N IL 71 11 11 DO 0 PH NN 10 AR A MA D MG CY # TA BL 10 ET 05 91 DI 00 07 09 6 30 30 WA 71 OC Ac CL 09 -1 -1 .0 L- 27 ON ti OF 31 7- 6- 00 MA 33 NE ve EN 04 20 20 RT 1 LL AC 10 11 11 1 PH WOODROW SO AR HN D MA ER CY # 10 0 10 MG 05 91 TA B 60 08 08 0 12 30 WA 22 OC Ac 95 -1 -2 0. L- 20 ON ti 10 1- 5- 00 MA 42 NE ve 79 20 20 0 RT 4 LL 77 11 11 0 PH WOODROW AR HN MA CY # 10 05 91 AC 50 08 08 5 10 30 WA 88 RA Ac CU 92 -1 -2 2. L- 18 O ti -C 40 5- 3- 00 MA 62 PA ve HE 88 20 20 0 RT 5 DM K 40 11 11 A CO 1 PH G MP AR AC MA T CY PL # US 10 ST 05 RI 91 PS AC 50 08 08 5 10 30 WA 88 RA Ac CU 92 -1 -2 2. L- 18 O ti -C 40 5- 3- 00 MA 62 PA ve HE 45 20 20 0 RT 6 DM K 00 11 11 A MU 1 PH G LT AR IC MA LI CY X # LA NC 10 ET 05 S 91 00 08 08 2 60 30 WA 71 OC Ac 37 -1 -1 .0 L- 30 ON ti 80 1- 1- 00 MA 61 NE ve 75 20 20 RT 7 LL 19 11 11 3 PH WOODROW AR HN MA CY # 10 05 91 DI 00 05 08 3 90 30 WA 44 OC Ac AZ 37 -0 -0 .0 L- 93 ON ti EP 80 4- 8- 00 MA 46 NE ve AM 47 20 20 RT 7 LL 70 11 11 10 5 PH WOODROW AR HN MG MA CY TA # BL ET 10 05 BA 00 02 08 4 60 30 FL 71 OC Ac CL 83 -1 -0 .0 L- 16 ON ti OF 21 0- 8- 00 MA 37 NE ve EN 02 20 20 RT 7 LL 40 11 11 10 9 PH WOODROW AR HN MG MA CY TA # BL ET 10 05 AK 13 02 08 3 30 30 FL 71 OC Ac RT 10 -1 -0 .0 L- 16 ON ti AZ 70 0- 8- 00 MA 37 NE ve AP 03 20 20 RT 9 LL IN 13 11 11 E 4 PH WOODROW 15 AR HN MA MG CY # TA BL 10 ET 05 SA 00 05 08 3 12 30 FL 71 OC Ac VE 45 -0 -0 0. L- 17 ON ti LL 61 3- 8- 00 MA 77 NE ve A 55 20 20 0 RT 9 LL 50 06 11 11 0 PH WOODROW MG AR HN MA TA CY BL # ET 10 DI 00 07 08 6 30 30 FL 71 OC Ac CL 09 -1 -0 .0 L- 27 ON ti OF 31 7- 8- 00 MA 33 NE ve EN 04 20 20 RT 1 LL AC 10 11 11 1 PH WOODROW SO AR HN D MA ER CY # 10 0 10 MG 05 91 TA B GL 54 06 08 2 30 30 FL 71 RA Ac IM 45 -2 -0 .0 L- 24 O ti EP 80 3- 8- 00 MA 32 PA ve IR 96 20 20 RT 2 DM ID 71 11 11 A E 0 PH G 2 AR MG MA CY TA # BL ET 10 CI 55 06 08 2 60 30 FL 71 RA Ac TA 11 -2 -0 .0 L- 24 O ti LO 10 3- 8- 00 MA 32 PA ve NJ 34 20 20 RT 3 DM AM 43 11 11 A 0 PH G HB AR R MA 40 CY # MG 10 TA 05 BL 91 ET ME 00 06 08 2 60 30 FL 71 RA Ac TF 09 -2 -0 .0 L- 24 O ti OR 37 3- 8- 00 MA 32 PA ve AK 21 20 20 RT 5 DM N 41 11 11 A HC 0 PH G L AR 1, MA 00 CY 0 # MG 10 TA 05 BL 91 ET SI 68 07 08 1 30 30 WA 71 RA Ac MV 38 -0 -0 .0 L- 25 O ti 20 5- 8- 00 MA 84 PA ve TA 06 20 20 RT 0 DM TI 70 11 11 A N 5 PH G 20 AR MA MG CY # TA BL 10 ET 05 91 NJ 37 06 08 2 30 30 WA 88 RA Ac IL 00 -2 -0 .0 L- 18 O ti OS 00 3- 8- 00 MA 26 PA ve EC 45 20 20 RT 4 DM 50 11 11 A OT 4 PH G C AR 20 MA .6 CY # MG 10 TA 05 BL 91 ET OX 53 07 07 0 90 30 WA 22 OC Ac YC 74 -2 -2 .0 L- 20 ON ti OD 60 6- 6- 00 MA 28 NE ve ON 20 20 20 RT 1 LL E- 40 11 11 AC 1 PH WOODROW ET AR HN AM MA IN CY OP # HE N 10 10 05 -3 91 25 00 07 07 5 90 30 WA 71 OC Ac 55 -2 -2 .0 L- 28 ON ti 50 6- 6- 00 MA 39 NE ve 61 20 20 RT 6 LL 31 11 11 4 PH WOODROW AR HN MA CY # 10 05 DI 00 05 07 3 90 30 WA 44 OC Ac AZ 37 -0 -0 .0 L- 93 ON ti EP 80 4- 6- 00 MA 46 NE ve AM 47 20 20 RT 7 LL 70 11 11 10 5 PH WOODROW AR HN MG MA CY TA # BL ET 05 BA 00 02 07 4 60 30 WA 71 OC Ac CL 83 -1 -0 .0 L- 16 ON ti OF 21 0- 6- 00 MA 37 NE ve EN 02 20 20 RT 7 LL 40 11 11 10 9 PH WOODROW AR HN MG MA CY TA # BL ET 10 05 91 AK 13 02 07 3 30 30 WA 71 OC Ac RT 10 -1 -0 .0 L- 16 ON ti AZ 70 0- 6- 00 MA 37 NE ve AP 03 20 20 RT 9 LL IN 13 11 11 E 4 PH WOODROW 15 AR HN MA MG CY # TA BL 10 ET 05 91 SI 68 07 07 1 30 30 WA 71 RA Ac MV 38 -0 -0 .0 L- 25 O ti 20 5- 5- 00 MA 84 PA ve TA 06 20 20 RT 0 DM TI 70 11 11 A N 5 PH G 20 AR MA MG CY # TA BL 10 ET 05 LI 68 06 06 0 [address] Ac SI 18 -2 -2 .0 L- 24 AN ti NO 00 5- 9- 00 MA 78 TO ve NJ 51 20 20 RT 4 N IL 40 11 11 DO 1 PH NN 10 AR A MA D MG CY # TA BL 10 ET 05 91 NJ 37 06 06 2 30 30 WA 88 RA Ac IL 00 -2 -2 .0 L- 18 O ti OS 00 3- 8- 00 MA 26 PA ve EC 45 20 20 RT 4 DM 50 11 11 A OT 4 PH G C AR 20 MA .6 CY # MG 10 TA 05 BL 91 ET OX 00 06 06 0 12 30 WA 22 OC Ac YC 40 -2 -2 0. L- 20 ON ti OD 60 4- 4- 00 MA 13 NE ve ON 52 20 20 0 RT 0 LL E- 30 11 11 AC 1 PH WOODROW ET AR HN AM MA IN CY OP # HE N 10 10 05 -3 91 25 LI 54 06 06 2 30 30 FL 71 RA Ac SI 45 -2 -2 .0 L- 24 O ti NO 80 3- 3- 00 MA 32 PA ve NJ 99 20 20 RT 0 DM IL 90 11 11 A 9 PH G 2. AR 5 MA MG CY # TA BL 10 ET 05 LA 00 06 06 2 10 30 FL 71 RA Ac NT 08 -2 -2 .0 L- 24 O ti US 82 3- 3- 00 MA 32 PA ve 22 20 20 RT 1 DM 10 03 11 11 A 0 3 PH G UN AR IT MA /M CY L # AL 10 05 91 GL 54 06 06 2 30 30 WA 71 RA Ac IM 45 -2 -2 .0 L- 24 O ti EP 80 3- 3- 00 MA 32 PA ve IR 96 20 20 RT 2 DM ID 71 11 11 A E 0 PH G 2 AR MG MA CY TA # BL ET 10 05 91 CI 55 06 06 2 60 30 FL 71 RA Ac TA 11 -2 -2 .0 L- 24 O ti LO 10 3- 3- 00 MA 32 PA ve NJ 34 20 20 RT 3 DM AM 43 11 11 A 0 PH G HB AR R MA 40 CY # MG 10 TA 05 BL 91 ET ME 00 06 06 2 60 30 WA 71 RA Ac TF 78 -2 -2 .0 L- 24 O ti OR 15 3- 3- 00 MA 32 PA ve AK 05 20 20 RT 5 DM N 26 11 11 A HC 1 PH G L AR 1, MA 00 CY 0 # MG 10 TA 05 BL 91 ET SA 00 05 06 3 12 30 WA 71 OC Ac VE 45 -0 -0 0. L- 17 ON ti LL 61 3- 8- 00 MA 77 NE ve A 55 20 20 0 RT 9 LL 50 06 11 11 0 PH WOODROW MG AR HN MA TA CY BL # ET 10 05 91 GL 55 06 06 0 7. 7 WA 71 RA Ac IM 11 -0 -0 00 L- 22 O ti EP 10 7- 7- 0 MA 28 PA ve IR 32 20 20 RT 8 DM ID 10 11 11 A E 1 PH G 2 AR MG MA CY TA # BL ET 10 05 91 ME 00 06 06 0 14 7 WA 71 RA Ac TF 78 -0 -0 .0 L- 22 O ti OR 15 7- 7- 00 MA 29 PA ve AK 05 20 20 RT 0 DM N 26 11 11 A HC 1 PH G L AR 1, MA 00 CY 0 # MG 10 TA 05 BL 91 ET DI 00 05 06 3 90 30 FL 44 OC Ac AZ 37 -0 -0 .0 L- 93 ON ti EP 80 4- 1- 00 MA 46 NE ve AM 47 20 20 RT 7 LL 70 11 11 10 5 PH WOODROW AR HN MG MA CY TA # BL ET 10 05 91 DI 00 11 06 1 30 30 FL 71 OC Ac CL 09 -3 -0 .0 L- 16 ON ti OF 31 0- 1- 00 MA 37 NE ve EN 04 20 20 RT 2 LL AC 10 10 11 1 PH WOODROW SO AR HN D MA ER CY # 10 0 10 MG 05 91 TA B BA 00 02 06 4 60 30 FL 71 OC Ac CL 83 -1 -0 .0 L- 16 ON ti OF 21 0- 1- 00 MA 37 NE ve EN 02 20 20 RT 7 LL 40 11 11 10 9 PH WOODROW AR HN MG MA CY TA # BL ET 10 05 91 CI 55 02 06 3 30 30 WA 71 OC Ac TA 11 -1 -0 .0 L- 16 ON ti LO 10 0- 1- 00 MA 37 NE ve NJ 34 20 20 RT 8 LL AM 43 11 11 0 PH WOODROW HB AR HN R MA 40 CY # MG 10 TA 05 BL 91 ET AK 13 02 06 3 30 30 WA 71 OC Ac RT 10 -1 -0 .0 L- 16 ON ti AZ 70 0- 1- 00 MA 37 NE ve AP 03 20 20 RT 9 LL IN 13 11 11 E 4 PH WOODROW 15 AR HN MA MG CY # TA BL 10 ET 05 91 NJ 37 12 06 3 30 30 WA 88 RA Ac IL 00 -2 -0 .0 L- 17 O ti OS 00 9- 1- 00 MA 87 PA ve EC 45 20 20 RT 9 DM 50 10 11 A OT 4 PH G C AR 20 MA .6 CY # MG 10 TA 05 BL 91 ET OX 00 05 05 0 12 30 WA 22 OC Ac YC 40 -2 -2 0. L- 19 ON ti OD 60 4- 4- 00 MA 97 NE ve ON 52 20 20 0 RT 2 LL E- 30 11 11 AC 1 PH WOODROW ET AR HN AM MA IN CY OP # HE N 10 10 05 -3 91 25 DI 00 05 05 3 90 30 WA 44 OC Ac AZ 37 -0 -0 .0 L- 93 ON ti EP 80 4- 4- 00 MA 46 NE ve AM 47 20 20 RT 7 LL 70 11 11 10 5 PH WOODROW AR HN MG MA CY TA # BL ET 10 SA 00 05 05 3 12 30 WA 71 OC Ac VE 45 -0 -0 0. L- 17 ON ti LL 61 3- 4- 00 MA 77 NE ve A 55 20 20 0 RT 9 LL 50 06 11 11 0 PH WOODROW MG AR HN MA TA CY BL # ET 10 NJ 37 12 04 3 30 30 WA 88 RA Ac IL 00 -2 -2 .0 L- 17 O ti OS 00 9- 5- 00 MA 87 PA ve EC 45 20 20 RT 9 DM 50 10 11 A OT 4 PH G C AR 20 MA .6 CY # MG 10 TA 05 BL 91 ET DI 00 11 04 1 30 30 WA 71 OC Ac CL 09 -3 -2 .0 L- 16 ON ti OF 31 0- 2- 00 MA 37 NE ve EN 04 20 20 RT 2 LL AC 10 10 11 1 PH WOODROW SO AR HN D MA ER CY # 10 0 10 MG 05 91 TA B AK 00 02 04 3 30 30 WA 71 OC Ac RA 59 -1 -2 .0 L- 16 ON ti PE 70 0- 2- 00 MA 37 NE ve X 11 20 20 RT 5 LL ER 33 11 11 0 PH WOODROW 1. AR HN 5 MA MG CY # TA BL 10 ET 05 SA 00 04 04 1 60 30 WA 71 OC Ac VE 45 -0 -2 .0 L- 16 ON ti LL 61 4- 2- 00 MA 37 NE ve A 55 20 20 RT 6 LL 50 06 11 11 0 PH WOODROW MG AR HN MA TA CY BL # ET 10 05 91 BA 00 02 04 4 60 30 WA 71 OC Ac CL 83 -1 -2 .0 L- 16 ON ti OF 21 0- 2- 00 MA 37 NE ve EN 02 20 20 RT 7 LL 40 11 11 10 9 PH WOODROW AR HN MG MA CY TA # BL ET 10 05 91 CI 55 02 04 3 30 30 WA 71 OC Ac TA 11 -1 -2 .0 L- 16 ON ti LO 10 0- 2- 00 MA 37 NE ve NJ 34 20 20 RT 8 LL AM 43 11 11 0 PH WOODROW HB AR HN R MA 40 CY # MG 10 TA 05 BL 91 ET AK 13 02 04 3 30 30 WA 71 OC Ac RT 10 -1 -2 .0 L- 16 ON ti AZ 70 0- 2- 00 MA 37 NE ve AP 03 20 20 RT 9 LL IN 13 11 11 E 0 PH WOODROW 15 AR HN MA MG CY # TA BL 10 ET 05 91 ME 00 12 04 0 60 30 WA 71 RA Ac TF 78 -2 -2 .0 L- 16 O ti OR 15 9- 2- 00 MA 37 PA ve AK 05 20 20 RT 1 DM N 26 10 11 A HC 1 PH G L AR 1, MA 00 CY 0 # MG 10 TA 05 BL 91 ET GL 54 12 04 0 30 30 WA 71 RA Ac IM 45 -2 -2 .0 L- 16 O ti EP 80 9- 2- 00 MA 37 PA ve IR 96 20 20 RT 3 DM ID 71 10 11 A E 0 PH G 2 AR MG MA CY TA # BL ET 10 05 91 AC 65 04 04 0 1. 1 EA 22 RA Ac CU 70 -0 -[address] 01 O ti -C 20 6- 6- 0 SI 42 PA ve HE 10 20 20 DE DM K 11 11 11 A AV 0 PH G IV AR A MA PL CY US OF ME TE CY R NT HI AN A 65 04 04 0 10 30 EA 22 RA Ac 70 -0 -[address] 01 O ti 20 6- 6- 00 SI 43 PA ve 10 20 20 0 DE DM 41 11 11 A 0 PH G AR MA CY OF CY NT HI AN A NJ 37 12 03 5 30 30 EA 20 RA Ac IL 00 -2 -[address] 58 O ti OS 00 9- 8- 00 SI 65 PA ve EC 45 20 20 DE DM 50 10 11 A OT 2 PH G C AR 20 MA .6 CY MG OF TA CY BL NT ET HI AN A SA 00 11 03 5 60 30 EA 19 OC Ac VE 45 -0 -[address] 81 ON ti LL 61 3- 3- 00 SI 64 NE ve A 55 20 20 DE LL 50 06 10 11 0 PH WOODROW MG AR HN MA TA CY BL ET OF CY NT HI AN A DI 00 11 03 5 30 30 EA 19 OC Ac CL 78 -0 -[address] 81 ON ti OF 11 3- 3- 00 SI 65 NE ve EN 38 20 20 DE LL AC 10 10 11 1 PH WOODROW SO AR HN D MA ER CY 10 OF 0 MG CY NT TA HI B AN A ME 00 12 03 3 60 30 EA 20 RA Ac TF 09 -2 -[address] 58 O ti OR 37 9- 3- 00 SI 64 PA ve AK 21 20 20 DE DM N 41 10 11 A HC 0 PH G L AR 1, MA 00 CY 0 MG OF TA CY BL NT ET HI AN A GL 00 12 03 3 30 30 EA 20 RA Ac IM 09 -2 -[address] 58 O ti EP 37 9- 3- 00 SI 66 PA ve IR 25 20 20 DE DM ID 50 10 11 A E 1 PH G 2 AR MG MA CY TA BL OF ET CY NT HI AN A DI 00 01 03 2 90 30 EA 20 OC Ac AZ 59 -0 -[address] 69 ON ti EP 15 5- 3- 00 SI 50 NE ve AM 62 20 20 DE LL 01 11 11 10 0 PH WOODROW AR HN MG MA CY TA BL OF ET CY NT HI AN A AK 00 02 03 5 30 30 EA 21 OC Ac RT 09 -1 -[address] 18 ON ti AZ 37 0- 3- 00 SI 75 NE ve AP 20 20 20 DE LL IN 65 11 11 E 6 PH WOODROW 15 AR HN MA MG CY TA OF BL ET CY NT HI AN A AK 00 02 03 5 30 30 EA 21 OC Ac RA 59 -1 -[address] 18 ON ti PE 70 0- 3- 00 SI 76 NE ve X 11 20 20 DE LL ER 33 11 11 0 PH WOODROW 1. AR HN 5 MA MG CY TA OF BL ET CY NT HI AN A 59 02 03 5 30 30 EA 21 OC Ac 76 -1 -[address] 18 ON ti 24 0- 3- 00 SI 77 NE ve 80 20 20 DE LL 20 11 11 5 PH WOODROW AR HN MA CY OF CY NT HI AN A BA 16 02 03 5 60 30 EA 21 OC Ac CL 71 -1 -[address] 18 ON ti OF 40 0- 3- 00 SI 78 NE ve EN 07 20 20 DE LL 10 11 11 10 6 PH WOODROW AR HN MG MA CY TA BL OF ET CY NT HI AN A LA 00 03 03 0 10 30 EA 21 RA Ac NT 08 -0 -[address] 46 O ti US 82 1- 1- 00 SI 32 PA ve 22 20 20 DE DM 10 03 11 11 A 0 3 PH G UN AR IT MA /M CY L OF AL CY NT HI AN A OX 00 02 02 0 16 1 WA 22 CH Ac YC 40 -2 -2 .0 L- 18 ES ti OD 60 8- 8- 00 MA 93 TN ve ON 52 20 20 RT 5 UT -A 20 11 11 CE 1 PH AK TA AR CH AK MA AE NO CY L PH # EN 10 7. 04 5- 93 32 5 AK 00 02 02 5 30 30 EA 21 OC Ac RT 09 -1 -[address] 18 ON ti AZ 37 0- 0- 00 SI 75 NE ve AP 20 20 20 DE LL IN 65 11 11 E 6 PH WOODROW 15 AR HN MA MG CY TA OF BL ET CY NT HI AN A AK 00 02 02 5 30 30 EA 21 OC Ac RA 59 -1 -[address] 18 ON ti PE 70 0- 0- 00 SI 76 NE ve X 11 20 20 DE LL ER 33 11 11 0 PH WOODROW 1. AR HN 5 MA MG CY TA OF BL ET CY NT HI AN A 59 02 02 5 30 30 EA 21 OC Ac 76 -1 -[address] 18 ON ti 24 0- 0- 00 SI 77 NE ve 80 20 20 DE LL 20 11 11 5 PH WOODROW AR HN MA CY OF CY NT HI AN A BA 16 02 02 5 60 30 EA 21 OC Ac CL 71 -1 -[address] 18 ON ti OF 40 0- 0- 00 SI 78 NE ve EN 07 20 20 DE LL 10 11 11 10 6 PH WOODROW AR HN MG MA CY TA BL OF ET CY NT HI AN A SA 00 11 02 5 60 30 EA 19 OC Ac VE 45 -0 -[address] 81 ON ti LL 61 3- 9- 00 SI 64 NE ve A 55 20 20 DE LL 50 06 10 11 0 PH WOODROW MG AR HN MA TA CY BL ET OF CY NT HI AN A NJ 37 12 02 5 30 30 EA 20 RA Ac IL 00 -2 -[address] 58 O ti OS 00 SI 65 PA ve EC 45 20 20 DE DM 50 10 11 A OT 2 PH G C AR 20 MA .6 CY MG OF TA CY BL NT ET HI AN A DI 00 11 02 5 30 30 EA 19 OC Ac CL 78 -0 -[address] 81 ON ti OF 11 SI 65 NE ve EN 38 20 20 DE LL AC 10 10 11 1 PH WOODROW SO AR HN D MA ER CY 10 OF 0 MG CY NT TA HI B AN A ME 00 12 02 3 60 30 EA 20 RA Ac TF 09 -2 -[address] 58 O ti OR 37 SI 64 PA ve AK 21 20 20 DE DM N 41 10 11 A HC 0 PH G L AR 1, MA 00 CY 0 MG OF TA CY BL NT ET HI AN A GL 00 12 02 3 30 30 EA 20 RA Ac IM 09 -2 -[address] 58 O ti EP 37 SI 66 PA ve IR 25 20 20 DE DM ID 50 10 11 A E 1 PH G 2 AR MG MA CY TA BL OF ET CY NT HI AN A 00 01 02 2 90 30 EA 20 OC Ac 55 -0 -[address] 69 ON ti 50 5- 4- 00 SI 50 NE ve 16 20 20 DE LL 40 11 11 5 PH WOODROW AR HN MA CY OF CY NT HI AN A 00 01 01 2 90 30 EA 20 OC Ac 55 -0 -[address] 69 ON ti 50 5- 5- 00 SI 50 NE ve 16 20 20 DE LL 40 11 11 5 PH WOODROW AR HN MA CY OF CY NT HI AN A SA 00 11 12 5 60 30 EA 19 OC Ac VE 45 -0 -[address] 81 ON ti LL 61 3- 00 SI 64 NE ve A 55 20 20 DE LL 50 06 10 10 0 PH WOODROW MG AR HN MA TA CY BL ET OF CY NT HI AN A DI 00 11 12 5 30 30 EA 19 OC Ac CL 78 -0 -[address] 81 ON ti OF 11 SI 65 NE ve EN 38 20 20 DE LL AC 10 10 10 1 PH WOODROW SO AR HN D MA ER CY 10 OF 0 MG CY NT TA HI B AN A ME 00 12 12 3 60 30 EA 20 RA Ac TF 09 -2 -[address] 58 O ti OR 37 SI 64 PA ve AK 21 20 20 DE DM N 41 10 10 A HC 0 PH G L AR 1, MA 00 CY 0 MG OF TA CY BL NT ET HI AN A NJ 37 12 12 5 30 30 EA 20 RA Ac IL 00 -2 -[address] 58 O ti OS 00 SI 65 PA ve EC 45 20 20 DE DM 50 10 10 A OT 2 PH G C AR 20 MA .6 CY MG OF TA CY BL NT ET HI AN A GL 00 12 12 3 30 30 EA 20 RA Ac IM 09 -2 -[address] 58 O ti EP 37 SI 66 PA ve IR 25 20 20 DE DM ID 50 10 10 A E 1 PH G 2 AR MG MA CY TA BL OF ET CY NT HI AN A LA 00 12 12 0 10 30 EA 20 RA Ac NT 08 -2 -[address] 58 O ti US 82 00 SI 67 PA ve 22 20 20 DE DM 10 03 10 10 A 0 3 PH G UN AR IT MA /M CY L OF AL CY NT HI AN A LI 00 12 12 0 30 30 EA 20 FA Ac SI 17 -2 -[address] 59 LL ti NO 23 SI 31 UJ ve NJ 75 20 20 DE I IL 77 10 10 NE 0 PH ZA 2. AR R 5 MA M MG CY TA OF BL ET CY NT HI AN A AT 00 12 12 0 60 30 EA 20 FA Ac EN 78 -2 -[address] 59 LL ti OL 11 SI 32 UJ ve OL 07 20 20 DE I 80 10 10 NE 25 1 PH ZA AR R MG MA M CY TA BL OF ET CY NT HI AN A UL 08 12 12 11 10 90 YO 23 RA Ac TR 88 -2 -2 0. UR 56 O ti A 16 00 6 PA ve CO 09 20 20 0 PH DM MF 70 10 10 AR A OR 0 MA G T CY 0. 5 ML SY RI NG E CL 51 12 12 0 30 15 WA 70 SA Ac OT 67 -1 -1 .0 L- 99 VA ti RI 21 8- 9- 00 MA 00 GE ve MA 27 20 20 RT 1 ZO 50 10 10 SA LE 2 PH ND AR RA 1% MA L CY CR # EA M 10 05 91 LAMBERT 53 12 12 0 14 7 WA 70 SA Ac LF 74 -1 -1 .0 L- 99 VA ti AM 60 8- 9- 00 MA 00 GE ve ET 27 20 20 RT 2 HO 20 10 10 SA XA 5 PH ND ZO AR RA LE MA L -T CY MP # DS 10 05 TA 91 BL ET OX 00 11 12 0 40 5 WA 22 WI Ac YC 40 -2 -1 .0 L- 19 LS ti OD 60 4- 6- 00 MA 14 ON ve ON 51 20 20 RT 2 E- 20 10 10 TI AC 1 PH MO ET AR TH AM MA Y IN CY C OP # HE N 10 5- 05 32 91 5 ME 00 12 12 0 30 15 EA 20 GA Ac TF 09 -1 -[address] 38 IN ti OR 31 3- 3- 00 SI 45 EY ve AK 04 20 20 DE N 81 10 10 AK HC 0 PH CH L AR AE 50 MA L 0 CY S MG OF TA BL CY ET NT HI AN A VE 00 12 12 0 18 25 EA 20 WE Ac NT 17 -1 -[address] 38 HR ti OL 30 3- 3- 00 SI 46 MA ve IN 68 20 20 DE N 22 10 10 II HF 0 PH I A AR WI 90 MA LL CY IA MC M G OF E IN DENG CY LE NT R HI AN A GL 00 12 12 0 14 14 EA 20 GA Ac IM 09 -1 -[address] 38 IN ti EP 37 3- 3- 00 SI 44 EY ve IR 25 20 20 DE ID 50 10 10 AK E 1 PH CH 2 AR AE MG MA L CY S TA BL OF ET CY NT HI AN A AK 00 10 11 1 30 30 EA 19 AK Ac RT 09 -2 -[address] 69 LL ti AZ 37 6- 9- 00 SI 79 ER ve AP 20 20 20 DE IN 65 10 10 CA E 6 PH RO 15 AR L MA J MG CY TA OF BL ET CY NT HI AN A 59 10 11 1 30 30 EA 19 AK Ac 76 -2 -[address] 69 LL ti 24 6- 9- 00 SI 80 ER ve 80 20 20 DE 20 10 10 CA 5 PH RO AR L MA J CY OF CY NT HI AN A NJ 00 11 11 0 20 5 EA 20 WI Ac OM 78 -1 -[address] 00 LS ti ET 11 6- 6- 00 SI 32 ON ve DENG 83 20 20 DE ZI 01 10 10 TI NE 0 PH MO AR TH 25 MA Y CY C MG OF TA BL CY ET NT HI AN A AT 00 11 11 0 60 30 EA 19 FA Ac EN 78 -1 -[address] 99 LL ti OL 11 5- 5- 00 SI 00 UJ ve OL 07 20 20 DE I 80 10 10 NE 25 1 PH ZA AR R MG MA M CY TA BL OF ET CY NT HI AN A LI 00 11 11 0 30 30 EA 19 FA Ac SI 17 -1 -[address] 99 LL ti NO 23 5- 5- 00 SI 01 UJ ve NJ 75 20 20 DE I IL 77 10 10 NE 0 PH ZA 2. AR R 5 MA M MG CY TA OF BL ET CY NT HI AN A SA 00 11 11 5 60 30 EA 19 OC Ac VE 45 -0 -[address] 81 ON ti LL 61 3- 4- 00 SI 64 NE ve A 55 20 20 DE LL 50 06 10 10 0 PH WOODROW MG AR HN MA TA CY BL ET OF CY NT HI AN A DI 00 11 11 5 30 30 EA 19 OC Ac CL 78 -0 -[address] 81 ON ti OF 11 3 3 00 SI 65 NE ve EN 38 20 20 DE LL AC 10 10 10 1 PH WOODROW SO AR HN D MA ER CY 10 OF 0 MG CY NT TA HI B AN A AK 00 10 10 1 30 30 EA 19 AK Ac RT 09 -2 -[address] 69 LL ti AZ 37 6- 6- 00 SI 79 ER ve AP 20 20 20 DE IN 65 10 10 CA E 6 PH RO 15 AR L MA J MG CY TA OF BL ET CY NT HI AN A 59 10 10 1 30 30 EA 19 AK Ac 76 -2 -[address] 69 LL ti 24 6- 6- 00 SI 80 ER ve 80 20 20 DE 20 10 10 CA 5 PH RO AR L MA J CY OF CY NT HI AN A 00 09 09 0 12 3 EA 19 GA Ac 09 -2 -[address] 33 IN ti 30 8- 8 00 SI 09 EY ve 89 20 20 DE 00 10 10 AK 5 PH CH AR AE MA L CY S OF CY NT HI AN A ME 00 09 09 0 21 6 EA 19 GA Ac TH 78 -2 -[address] 33 IN ti YL 15 8- 8- 00 SI 10 EY ve NJ 02 20 20 DE ED 20 10 10 AK NI 7 PH CH SO AR AE LO MA L NE CY S 4 OF MG CY DO NT SE HI PK AN A 00 09 09 0 10 2 EA 19 SW Ac 59 -1 -[address] 10 EE ti 10 3- 3- 00 SI 95 NE ve 34 20 20 DE Y 90 10 10 GR 1 PH EG AR OR MA Y CY D OF CY NT HI AN A NJ 00 09 09 0 10 2 EA 19 SW Ac OM 78 -1 -[address] 10 EE ti ET 11 3- 3- 00 SI 96 NE ve DENG 83 20 20 DE Y ZI 01 10 10 GR NE 0 PH EG AR OR 25 MA Y CY D MG OF TA BL CY ET NT HI AN A LE 00 10 07 5 60 30 EA 14 OC Ac VE 37 -2 -[address] 87 ON ti TI 85 7- 8- 00 SI 42 NE ve RA 61 20 20 DE LL CE 57 09 10 TA 8 PH WOODROW M AR HN 50 MA 0 CY MG OF TA BL CY ET NT HI AN A 00 11 07 5 [address] Ac PI 60 -3 -[address] 34 EP ti RI 30 0- 8- 00 SI 16 HE ve N 02 20 20 DE NS EC 62 09 10 2 PH DO 81 AR N MA R MG CY TA OF BL ET CY NT HI AN A HY 00 04 07 2 12 30 EA [address] 55 -2 -[address] 26 LL ti OX 50 0- 8- 00 SI 30 ER ve YZ 30 20 20 0 DE IN 20 10 10 CA E 2 PH RO PA AR L M MA J 50 CY MG OF CA CY P NT HI AN A CI 65 04 07 2 45 23 EA 17 AK Ac TA 86 -2 -[address] 26 LL ti LO 20 0- 8- 00 SI 31 ER ve NJ 00 20 20 DE AM 70 10 10 CA 5 PH RO HB AR L R MA J 40 CY MG OF TA CY BL NT ET HI AN A NI 00 06 07 2 30 30 EA 17 RA Ac 07 -0 -[address] 82 O ti PA 43 2- 8- 00 SI 80 PA ve N 08 20 20 DE DM ER 09 10 10 A 0 PH G 1, AR 00 MA 0 CY MG OF TA BL CY ET NT HI AN A LI 00 06 07 2 30 30 EA 17 RA Ac SI 17 -0 -[address] 82 O ti NO 23 2- 8- 00 SI 82 PA ve NJ 75 20 20 DE DM IL 77 10 10 A 0 PH G 2. AR 5 MA MG CY TA OF BL ET CY NT HI AN A ME 00 06 07 2 30 30 EA 17 RA Ac TO 37 -0 -[address] 82 O ti NJ 80 2- 8- 00 SI 83 PA ve OL 01 20 20 DE DM OL 80 10 10 A 1 PH G TA AR RT MA RA CY TE OF 25 CY MG NT HI TA AN B A 52 07 07 0 1. 1 EA 18 JE Ac 26 -0 -[address] 27 NN ti 80 8- 8- 0 SI 11 IN ve 52 20 20 DE GS 10 10 10 -C 1 PH ON AR KL MA IN CY KA OF RE N CY NT HI AN A PO 51 07 07 5 52 30 EA 18 JE Ac LY 99 -0 -[address] 27 NN ti ET 10 8- 8- 00 SI 12 IN ve HY 45 20 20 0 DE GS LE 75 10 10 -C NE 7 PH ON AR KL GL MA IN YC CY OL KA OF RE 33 N 50 CY NT PO HI WD AN A NE 00 05 07 2 30 30 WA 70 RA Ac XI 18 -0 -0 .0 L- 69 O ti UM 65 4- 8- 00 MA 35 PA ve 04 [address] 03 10 10 A 1 PH G 40 AR MA MG CY # CA PS 10 UL 05 E 91 LY 00 06 06 0 18 30 EA 17 OC Ac RI 07 -1 -[address] 99 ON ti CA 11 5- 5- 00 SI 03 NE ve 01 20 20 0 DE LL 75 46 10 10 8 PH WOODROW MG AR HN MA CA CY PS UL OF E CY NT HI AN A LE 00 10 06 5 60 30 EA 14 OC Ac VE 37 -2 -[address] 87 ON ti TI 85 7- 2- 00 SI 42 NE ve RA 61 20 20 DE LL CE 57 09 10 TA 8 PH WOODROW M AR HN 50 MA 0 CY MG OF TA BL CY ET NT HI AN A 00 11 06 5 [address] Ac PI 60 -3 -[address] 34 EP ti RI 30 0- 2- 00 SI 16 HE ve N 02 20 20 DE NS EC 62 09 10 2 PH DO 81 AR N MA R MG CY TA OF BL ET CY NT HI AN A HY 00 04 06 2 12 30 EA [address] 55 -2 -[address] 26 LL ti OX 50 0- 2- 00 SI 30 ER ve YZ 30 20 20 0 DE IN 20 10 10 CA E 2 PH RO PA AR L M MA J 50 CY MG OF CA CY P NT HI AN A CI 55 04 06 2 45 23 EA 17 AK Ac TA 11 -2 -[address] 26 LL ti LO 10 0- 2- 00 SI 31 ER ve NJ 34 20 20 DE AM 40 10 10 CA 5 PH RO HB AR L R MA J 40 CY MG OF TA CY BL NT ET HI AN A NI 00 06 06 2 30 30 EA 17 RA Ac 07 -0 -[address] 82 O ti PA 43 2- 2- 00 SI 80 PA ve N 08 20 20 DE DM ER 09 10 10 A 0 PH G 1, AR 00 MA 0 CY MG OF TA BL CY ET NT HI AN A LI 00 06 06 2 30 30 EA 17 RA Ac SI 17 -0 -[address] 82 O ti NO 23 2- 2- 00 SI 82 PA ve NJ 75 20 20 DE DM IL 77 10 10 A 0 PH G 2. AR 5 MA MG CY TA OF BL ET CY NT HI AN A ME 00 06 06 2 30 30 EA 17 RA Ac TO 37 -0 -[address] 82 O ti NJ 80 2- 2- 00 SI 83 PA ve OL 01 20 20 DE DM OL 80 10 10 A 1 PH G TA AR RT MA RA CY TE OF 25 CY MG NT HI TA AN B A NE 00 05 06 2 30 30 WA 70 RA Ac XI 18 -0 -0 .0 L- 69 O ti UM 65 4- 2- 00 MA 35 PA ve 04 [address] 03 10 10 A 1 PH G 40 AR MA MG CY # CA PS 10 UL 05 E 91 NE 00 05 05 2 30 30 WA 70 RA Ac XI 18 -0 -0 .0 L- 69 O ti UM 65 4- 4- 00 MA 35 PA ve 04 [address] 03 10 10 A 1 PH G 40 AR MA MG CY # CA PS 10 UL 05 E 91 HY 00 04 04 2 12 30 EA [address] 55 -2 -[address] 26 LL ti OX 50 0- 0- 00 SI 30 ER ve YZ 30 20 20 0 DE IN 20 10 10 CA E 2 PH RO PA AR L M MA J 50 CY MG OF CA CY P NT HI AN A 00 04 04 0 12 3 EA 17 GA Ac 59 -0 -[address] 05 IN ti 10 2- 2- 00 SI 51 EY ve 34 20 20 DE 90 10 10 AK 1 PH CH AR AE MA L CY S OF CY NT HI AN A LE 00 10 03 5 60 30 EA 14 OC Ac VE 37 -2 -[address] 87 ON ti TI 85 7- 6- 00 SI 42 NE ve RA 61 20 20 DE LL CE 57 09 10 TA 8 PH WOODROW M AR HN 50 MA 0 CY MG OF TA BL CY ET NT HI AN A LY 00 10 03 5 18 30 EA 14 OC Ac RI 07 -2 -[address] 87 ON ti CA 11 7- 6- 00 SI 43 NE ve 01 20 20 0 DE LL 75 46 09 10 8 PH WOODROW MG AR HN MA CA CY PS UL OF E CY NT HI AN A HY 00 10 03 5 18 30 EA [address] 55 -2 -[address] 87 ON ti OX 50 7- 6- 00 SI 44 NE ve YZ 32 20 20 0 DE LL IN 30 09 10 E 4 PH WOODROW PA AR HN M MA 25 CY MG OF CA CY P NT HI AN A CI 55 11 03 2 45 30 EA 14 No Ac TA 11 -0 -[address] 95 t ti LO 10 2- 6- 00 SI 55 Av ve NJ 34 20 20 DE ai AM 40 09 10 la 5 PH bl HB AR e R MA 40 CY MG OF TA CY BL NT ET HI AN A 00 11 03 5 [address] Ac PI 60 -3 -[address] 34 EP ti RI 30 0- 6- 00 SI 16 HE ve N 02 20 20 DE NS EC 62 09 10 2 PH DO 81 AR N MA R MG CY TA OF BL ET CY NT HI AN A NJ 37 11 03 5 [address] Ac IL 00 -3 -[address] 34 EP ti OS 00 0- 6- 00 SI 17 HE ve EC 45 20 20 DE NS 50 09 10 OT 2 PH DO C AR N 20 MA R .6 CY MG OF TA CY BL NT ET HI AN A NI 00 11 03 2 30 30 EA 15 RA Ac 07 -3 -[address] 34 O ti PA 43 0- 6- 00 SI 77 PA ve N 08 20 20 DE DM ER 09 09 10 A 0 PH G 1, AR 00 MA 0 CY MG OF TA BL CY ET NT HI AN A ME 00 11 03 2 30 30 EA 15 RA Ac TO 37 -3 -[address] 34 O ti NJ 80 0- 6- 00 SI 78 PA ve OL 01 20 20 DE DM OL 80 09 10 A 1 PH G TA AR RT MA RA CY TE OF 25 CY MG NT HI TA AN B A Vital Signs 06-21-2013 15:08 Name Value Interpretat [...] O2% 98 % Respiratory 20 /min Rate Results Labs Lab Lab Date Result Refere Interp Status Commen Order Detail nces retati t Range on Glucose capillary blood glucometer (08-05-2017 06:30) Glucose = 92 70-110 complet 017 mg/dl ed capilla 06:[address] Basic metabolic panel (08-05-2017 05:20) Serum = 11 7-18 complet or 017 mg/dL ed plasma 05:20 urea nitroge n measure men Serum = 8.9 8.5-10. complet or 017 mg/dL 1 ed plasma 05:20 calcium measure ment (mas Serum = 104 98-107 complet or 017 mmoL/L ed plasma 05:20 chlorid e measure ment (mo Carbon = 28 21.0-32 complet dioxide 017 mmoL/L .0 ed 05:20 measure ment Serum = 1.2 0.70-1. complet or 017 mg/dL 30 ed plasma 05:20 creatin ine measure ment ( Estimat = 126 50-200 complet ion of 017 ML/MIN ed creatin 05:20 ine renal clearan ce Estimat = 65 >60 complet ed 017 ML/MIN ed glomeru 05:20 lar filtrat ion rate (GF Serum = 101 74-106 complet or 017 mg/dL ed plasma 05:20 glucose measure ment (mas Serum = 3.4 3.5-5.1 complet potassi 017 mmoL/L ed um 05:20 measure ment Serum = 139 136-145 complet sodium 017 mmoL/L ed measure 05:20 ment Glucose capillary blood glucometer (08-04-2017 20:37) Glucose = 98 70-110 complet 017 mg/dl ed capilla 20:[address] Glucose capillary blood glucometer (08-04-2017 18:04) Glucose = 101 70-110 complet 017 mg/dl ed capilla 18:[address] Activated clotting time (08-04-2017 11:36) Activat > 400 74-125 complet ed 017 SEC ed clottin 11:36 g time Glucose capillary blood glucometer (08-04-2017 06:08) Glucose = 81 70-110 complet 017 mg/dl ed capilla 06:[address] CBC w auto diff (08-04-2017 06:05) Automat = 0.1 0-0.2 complet ed 017 K/MM3 ed blood 06:05 basophi l count (count/ vo Baso % = 0.8 % 0.1-2.0 complet 017 ed 06:05 Automat = 0.0 0.0-0.4 complet ed 017 K/mm3 ed blood 06:05 eosinop hil count Automat = 0.5 % 0.1-12. complet ed 017 0 ed blood 06:05 eosinop hils/10 0 leukocy t Blood = 3.5 1.3-8.0 complet granulo 017 K/mm3 ed cytes 06:05 automat ed count (numb Granulo = 54.2 37.0-80 complet cyte 017 % .0 ed percent 06:05 age Blood = 42.0 42.0-52 complet hematoc 017 % .0 ed rit 06:05 (volume fractio n) Blood = 14.5 14.1-18 complet hemoglo 017 g/dL .0 ed bin 06:05 measure ment (mass/v olum Absolut = 2.4 0.7-4.5 complet e 017 K/mm3 ed lymphoc 06:05 yte count Lymphoc = 38.0 10-50 complet yte 017 % ed count, 06:05 blood, automat ed Mean = 30.2 27-31.2 complet corpusc 017 pg ed ular 06:05 hemoglo bin (MCH) determ Automat = 34.5 31.8-35 complet ed 017 g/dl .4 ed erythro 06:05 cyte mean corpusc ular h Automat = 87.7 82.2-97 complet ed 017 fl .8 ed erythro 06:05 cyte mean corpusc ular v Absolut = 0.4 0.1-1.0 complet e 017 K/mm3 ed monocyt 06:05 e count Owsley % = 6.6 % 1.7-9.3 complet 017 ed 06:05 Automat = 8.1 7.4-10. complet ed 017 fl 4 ed blood 06:05 platele t mean volume gabriel Blood = 160 142-424 complet platele 017 K/mm3 ed t count 06:05 Red = 4.79 4.6-6.2 complet blood 017 M/mm3 ed cell 06:05 count Automat = 12.4 11.5-17 complet ed 017 % .5 ed erythro 06:05 cyte distrib ution width Blood = 6.4 4.8-10. complet leukocy 017 K/MM3 8 ed vivek 06:05 count (number /volume ) Basic metabolic panel (08-04-2017 06:05) Serum = 14 7-18 complet or 017 mg/dL ed plasma 06:05 urea nitroge n measure men Serum = 9.0 8.5-10. complet or 017 mg/dL 1 ed plasma 06:05 calcium measure ment (mas Serum = 106 98-107 complet or 017 mmoL/L ed plasma 06:05 chlorid e measure ment (mo Carbon = 26 21.0-32 complet dioxide 017 mmoL/L .0 ed 06:05 measure ment Serum = 1.1 0.70-1. complet or 017 mg/dL 30 ed plasma 06:05 creatin ine measure ment ( Estimat = 137 50-200 complet ion of 017 ML/MIN ed creatin 06:05 ine renal clearan ce Estimat = 71 >60 complet ed 017 ML/MIN ed glomeru 06:05 lar filtrat ion rate (GF Serum = 92 74-106 complet or 017 mg/dL ed plasma 06:05 glucose measure ment (mas Serum = 3.5 3.5-5.1 complet potassi 017 mmoL/L ed um 06:05 measure ment Serum = 139 136-145 complet sodium 017 mmoL/L ed measure 06:05 ment Serum or plasma troponin i.cardiac measu (08-03-2017 22:35) Serum < 0.02 0.00-0. complet or 017 ng/mL 06 ed plasma 22:35 troponi n i.cardi ac measu Glucose capillary blood glucometer (08-03-2017 21:04) Glucose = 139 70-110 complet 017 mg/dl ed capilla 21:[address] Cardiac enzymes (08-03-2017 18:55) Serum = 0.8 0-4.0 complet or 017 U/L ed plasma 18:55 creatin e kinase MB (CK-M Serum < 0.02 0.00-0. complet or 017 ng/mL 06 ed plasma 18:55 troponi n i.cardi ac measu Serum = 263 39-308 complet or 017 U/L ed plasma 18:55 creatin e kinase measure m Serum = 2.0 0.0-3.6 complet or 017 ng/mL ed plasma 18:55 creatin e kinase MB measu Glucose capillary blood glucometer (08-03-2017 17:48) Glucose = 96 70-110 complet 017 mg/dl ed capilla 17:[address] Cardiac enzymes (08-03-2017 16:00) Serum < 0.02 0.00-0. complet or 017 ng/mL 06 ed plasma 16:00 troponi n i.cardi ac measu Serum = 257 39-308 complet or 017 U/L ed plasma 16:00 creatin e kinase measure m Serum = 1.8 0.0-3.6 complet or 017 ng/mL ed plasma 16:00 creatin e kinase MB measu Serum = 0.7 0-4.0 complet or 017 U/L ed plasma 16:00 creatin e kinase MB (CK-M CBC w auto diff (08-03-2017 14:20) Automat = 0.1 0-0.2 complet ed 017 K/MM3 ed blood 14:20 basophi l count (count/ vo Baso % = 0.8 % 0.1-2.0 complet 017 ed 14:20 Automat = 0.1 0.0-0.4 complet ed 017 K/mm3 ed blood 14:20 eosinop hil count Automat = 0.9 % 0.1-12. complet ed 017 0 ed blood 14:20 eosinop hils/10 0 leukocy t Blood = 3.2 1.3-8.0 complet granulo 017 K/mm3 ed cytes 14:20 automat ed count (numb Granulo = 53.7 37.0-80 complet cyte 017 % .0 ed percent 14:20 age Blood = 46.1 42.0-52 complet hematoc 017 % .0 ed rit 14:20 (volume fractio n) Blood = 15.8 14.1-18 complet hemoglo 017 g/dL .0 ed bin 14:20 measure ment (mass/v olum Absolut = 2.2 0.7-4.5 complet e 017 K/mm3 ed lymphoc 14:20 yte count Lymphoc = 37.8 10-50 complet yte 017 % ed count, 14:20 blood, automat ed Mean = 29.9 27-31.2 complet corpusc 017 pg ed ular 14:20 hemoglo bin (MCH) determ Automat = 34.0 31.8-35 complet ed 017 g/dl .4 ed erythro 14:20 cyte mean corpusc ular h Automat = 88.0 82.2-97 complet ed 017 fl .8 ed erythro 14:20 cyte mean corpusc ular v Absolut = 0.4 0.1-1.0 complet e 017 K/mm3 ed monocyt 14:20 e count Owsley % = 6.7 % 1.7-9.3 complet 017 ed 14:20 Automat = 8.1 7.4-10. complet ed 017 fl 4 ed blood 14:20 platele t mean volume gabriel Blood = 172 142-424 complet platele 017 K/mm3 ed t count 14:20 Red = 5.24 4.6-6.2 complet blood 017 M/mm3 ed cell 14:20 count Automat = 12.4 11.5-17 complet ed 017 % .5 ed erythro 14:20 cyte distrib ution width Blood = 5.9 4.8-10. complet leukocy 017 K/MM3 8 ed vivek 14:20 count (number /volume ) Comprehensive metabolic panel (08-03-2017 14:20) Serum = 1.3 1.1-1.8 complet or 017 ed plasma 14:20 albumin /globul in mass ra Serum = 3.9 3.4-5.0 complet or 017 gm/dL ed plasma 14:20 albumin measure ment (mas Serum = 56 46-116 complet or 017 U/L ed plasma 14:20 alkalin e phospha tase gabriel Serum = 0.9 0.2-1.0 complet or 017 mg/dL ed plasma 14:20 total bilirub in measure m Serum = 19 7-18 complet or 017 mg/dL ed plasma 14:20 urea nitroge n measure men Serum = 9.0 8.5-10. complet or 017 mg/dL 1 ed plasma 14:20 calcium measure ment (mas Serum = 106 98-107 complet or 017 mmoL/L ed plasma 14:20 chlorid e measure ment (mo Carbon = 26 21.0-32 complet dioxide 017 mmoL/L .0 ed 14:20 measure ment Serum = 1.2 0.70-1. complet or 017 mg/dL 30 ed plasma 14:20 creatin ine measure ment ( Estimat = 133 50-200 complet ion of 017 ML/MIN ed creatin 14:20 ine renal clearan ce Estimat = 65 >60 complet ed 017 ML/MIN ed glomeru 14:20 lar filtrat ion rate (GF Serum = 3.0 1.3-3.2 complet globuli 017 gm/dL ed n 14:20 measure ment (mass/v olume) Serum = 94 74-106 complet or 017 mg/dL ed plasma 14:20 glucose measure ment (mas Serum = 4.0 3.5-5.1 complet potassi 017 mmoL/L ed um 14:20 measure ment Serum = 140 136-145 complet sodium 017 mmoL/L ed measure 14:20 ment Serum = 26 15-37 complet or 017 U/L ed plasma 14:20 asparta te aminotr ansfera ALT = 33 12-78 complet (SGPT) 017 U/L ed ser/davon 14:20 s Protein = 6.9 6.4-8.2 complet total 017 gm/dL ed ser/davon 14:20 s Serum or plasma troponin i.cardiac measu (08-03-2017 14:20) Serum < 0.02 0.00-0. complet or 017 ng/mL 06 ed plasma 14:20 troponi n i.cardi ac measu Encounters Encounter Start End Date Code Location Performer Type Date Emergency MONIE Tan MD (ER) 3 14:31 3 15:18 [facility]
--- OUTSIDE RECORDS SUMMARY | 2017-08-06 20:29 | External Medical Summary Rpt | CCD ---
Author Author , DAIN GAUTAM Address Unknown Phone Care Team Providers Care Process Lead Name Role Phone [facility] Unavailable Unavailable [facility], [facility] Tan MD, Unavailable Unavailable Lillian Tan MD [facility] # Unavailable Unavailable [id number], [facility] # [id number] [facility] # Unavailable Unavailable [id number], [facility] # [id number] [facility] Unavailable Unavailable PHARMACY Purpose Continuity of Care Document - 11-22-2009 through 2016 Problems Code Diagnosis DOS Provider Status 250.00 250.00 DIAB 06-21-2013 [facility] COMPL, TYPE Hospital II OR UNSPEC TYPE, NOT UNCNTRLD 272.4 272.4 06-21-2013 [place] HYPERLIPIDE [facility] NEC/NOS Hospital 401.9 401.9 06-21-2013 [place] HYPERTENSIO [facility] N NOS Hospital 412 412 OLD 06-21-2013 [place] MYOCARDIAL [facility] INFARCT Hospital 413.9 413.9 06-21-2013 [place] ANGINA [facility] PECTORIS [facility] NEC/NOS 995.1 995.1 06-21-2013 [place] ANGIONEUROT [facility] IC EDEMA Hospital E928.9 E928.9 06-21-2013 [place] ACCIDENT [facility] V12.54 V12.54 06-21-2013 [place] PERSONAL HX [facility] OF TIA,& Hospital CEREBRAL INFARCTION W/OUT RES DEFICITS V14.8 V14.8 06-21-2013 [place] HX-DRUG [facility] ALLERGY [facility] V45.89 V45.89 06-21-2013 [place] POSTSURGICA [facility] V58.67 V58.67 06-21-2013 [place] LONG-TERM [facility] (CURRENT) Hospital USE OF INSULIN V58.69 V58.69 OTH 06-21-2013 [place] [facility] I20.0 UNSTABLE ANGINA J06.9 ACUTE UPPER RESPIRATORY [...] 6- 9- 00 MA 49 PA ve MS 10 20 20 RT 0 DM N [...] 6- 6- 00 MA [address] 51 20 20 RT 9 DM IL [...] SA 00 08 10 5 60 30 OK 71 OC Ac VE 45 -1 -2 [...] HN MA CY # 10 05 91 MS 13 08 10 5 30 30 WA [...] 3- 4- 00 MA [address] 34 20 20 RT 3 DM AM 43 11 11 A 0 PH G HB AR R MA 40 CY # MG 10 TA [address] 37 10 10 2 30 30 WA [...] 1- 1- 00 MA 02 PA ve MS 10 20 20 RT 5 DM N 41 11 11 A HC 0 PH G L AR 1, MA 00 CY 0 # MG 10 TA 05 BL 91 ET LI 68 10 10 0 7[address] Ac SI 18 -2 -2 00 L- 40 AN ti NO 00 1- 1- 0 MA [address] 51 20 20 RT 4 N IL [...] TA # BL ET 10 05 91 MS 13 08 09 5 30 30 WA 71 OC Ac RT 10 -1 -2 .0 L- 30 ON ti AZ 70 1- 7- 00 MA 61 NE ve AP 03 20 20 RT 8 LL IN 13 11 11 E 4 PH WOODROW 15 AR HN MA MG CY # TA BL 10 ET 05 91 BA 00 02 09 4 60 30 OK 71 OC Ac CL 83 -1 -1 .0 L- 16 ON ti OF 21 0- 6- 00 MA 37 NE ve EN 02 20 20 RT 7 LL 40 11 11 10 9 PH WOODROW AR HN MG MA CY TA # BL ET 10 05 91 00 08 09 2 60 30 OK 71 OC Ac 37 -1 -1 .0 [...] GL 54 06 09 2 30 30 OK 71 RA Ac IM 45 -2 -1 .0 L- 24 O ti EP 80 3- 6- 00 MA 32 PA ve IR 96 20 20 RT 2 DM ID 71 11 11 A E 0 PH G 2 AR MG MA CY TA # BL ET 10 05 91 ME 23 06 09 2 60 30 OK 71 RA Ac TF 15 -2 -1 .0 L- 24 O ti OR 50 3- 6- 00 MA 32 PA ve MS 10 20 20 RT 5 DM N [...] # TA BL [address] 37 06 09 2 30 30 WA [...] 6- 6- 00 MA [address] 99 20 20 RT 6 N IL [...] BA 00 02 08 4 60 30 OK 71 OC Ac CL 83 -1 -0 .0 L- 16 ON ti OF 21 0- 8- 00 MA 37 NE ve EN 02 20 20 RT 7 LL 40 11 11 10 9 PH WOODROW AR HN MG MA CY TA # BL ET 10 05 MS 13 02 08 3 30 30 OK 71 OC Ac RT 10 -1 -0 .0 L- 16 ON ti AZ 70 0- 8- 00 MA 37 NE ve AP 03 20 20 RT 9 LL IN 13 11 11 E 4 PH WOODROW 15 AR HN MA MG CY # TA BL 10 ET 05 SA 00 05 08 3 12 30 OK 71 OC Ac VE 45 -0 -0 0. L- 17 ON ti LL 61 3- 8- 00 MA 77 NE ve A 55 20 20 0 RT 9 LL 50 06 11 11 0 PH WOODROW MG AR HN MA TA CY BL # ET 10 DI 00 07 08 6 30 30 OK 71 OC Ac CL 09 -1 -0 .0 L- 27 ON ti OF 31 7- 8- 00 MA 33 NE ve EN 04 20 20 RT 1 LL AC 10 11 11 1 PH WOODROW SO AR HN D MA ER CY # 10 0 10 MG 05 91 TA B GL 54 06 08 2 30 30 OK 71 RA Ac IM 45 -2 -0 .0 L- 24 O ti EP 80 3- 8- 00 MA 32 PA ve IR 96 20 20 RT 2 DM ID 71 11 11 A E 0 PH G 2 AR MG MA CY TA # BL ET 10 CI 55 06 08 2 60 30 OK 71 RA Ac TA 11 -2 -0 .0 L- 24 O ti LO 10 3- 8- 00 MA [address] 34 20 20 RT 3 DM AM 43 11 11 A 0 PH G HB AR R MA 40 CY # MG 10 TA 05 BL 91 ET ME 00 06 08 2 60 30 OK 71 RA Ac TF 09 -2 -0 .0 L- 24 O ti OR 37 3- 8- 00 MA 32 PA ve MS 21 20 20 RT 5 DM N [...] # TA BL [address] 37 06 08 2 30 30 WA [...] TA # BL ET 10 05 91 MS 13 02 07 3 30 30 WA [...] 5- 9- 00 MA [address] 51 20 20 RT 4 N IL 40 11 11 DO 1 PH NN 10 AR A MA D MG CY # TA BL [address] 37 06 06 2 30 30 WA [...] LI 54 06 06 2 30 30 OK 71 RA Ac SI 45 -2 -2 .0 L- 24 O ti NO 80 3- 3- 00 MA [address] 99 20 20 RT 0 DM IL 90 11 11 A 9 PH G 2. AR 5 MA MG CY # TA BL 10 ET 05 LA 00 06 06 2 10 30 OK 71 RA Ac NT 08 -2 -2 [...] CI 55 06 06 2 60 30 OK 71 RA Ac TA 11 -2 -2 .0 L- 24 O ti LO 10 3- 3- 00 MA [address] 34 20 20 RT 3 DM AM 43 11 11 A 0 PH G HB AR R MA 40 CY # MG 10 TA 05 BL 91 ET ME 00 06 06 2 60 30 WA 71 RA Ac TF 78 -2 -2 .0 L- 24 O ti OR 15 3- 3- 00 MA 32 PA ve MS 05 20 20 RT 5 DM N [...] 7- 7- 00 MA 29 PA ve MS 05 20 20 RT 0 DM N 26 11 11 A HC 1 PH G L AR 1, MA 00 CY 0 # MG 10 TA 05 BL 91 ET DI 00 05 06 3 90 30 OK 44 OC Ac AZ 37 -0 -0 .0 L- 93 ON ti EP 80 4- 1- 00 MA 46 NE ve AM 47 20 20 RT 7 LL 70 11 11 10 5 PH WOODROW AR HN MG MA CY TA # BL ET 10 05 91 DI 00 11 06 1 30 30 OK 71 OC Ac CL 09 -3 -0 .0 L- 16 ON ti OF 31 0- 1- 00 MA 37 NE ve EN 04 20 20 RT 2 LL AC 10 10 11 1 PH WOODROW SO AR HN D MA ER CY # 10 0 10 MG 05 91 TA B BA 00 02 06 4 60 30 OK 71 OC Ac CL 83 -1 -0 [...] 0- 1- 00 MA [address] 34 20 20 RT 8 LL AM 43 11 11 0 PH WOODROW HB AR HN R MA 40 CY # MG 10 TA 05 BL 91 ET MS 13 02 06 3 30 30 WA 71 OC Ac RT 10 -1 -0 .0 L- 16 ON ti AZ 70 0- 1- 00 MA 37 NE ve AP 03 20 20 RT 9 LL IN 13 11 11 E 4 PH WOODROW 15 AR HN MA MG CY # TA BL [address] 37 12 06 3 30 30 WA [...] MA TA CY BL # ET 10 CT 37 12 04 3 30 30 WA [...] 0 10 MG 05 91 TA B MS 00 02 04 3 30 30 WA [...] 0- 2- 00 MA [address] 34 20 20 RT 8 LL AM 43 11 11 0 PH WOODROW HB AR HN R MA 40 CY # MG 10 TA 05 BL 91 ET MS 13 02 04 3 30 30 WA [...] 9- 2- 00 MA 37 PA ve MS 05 20 20 RT 1 DM N [...] CY OF CY NT HI AN A CT 37 12 03 5 30 30 EA [...] 9- 3- 00 SI 64 PA ve MS 21 20 20 DE DM N 41 [...] OF ET CY NT HI AN A MS 00 02 03 5 30 30 EA 21 OC Ac RT 09 -1 -[address] 18 ON ti AZ 37 0- 3- 00 SI 75 NE ve AP 20 20 20 DE LL IN 65 11 11 E 6 PH WOODROW 15 AR HN MA MG CY TA OF BL ET CY NT HI AN A MS 00 02 03 5 30 30 EA [...] -A 20 11 11 CE 1 PH MS TA AR CH MS MA AE NO CY L PH # EN 10 7. 04 5- 93 32 5 MS 00 02 02 5 30 30 EA 21 OC Ac RT 09 -1 -[address] 18 ON ti AZ 37 0- 0- 00 SI 75 NE ve AP 20 20 20 DE LL IN 65 11 11 E 6 PH WOODROW 15 AR HN MA MG CY TA OF BL ET CY NT HI AN A MS 00 02 02 5 30 30 EA [...] ET OF CY NT HI AN A CT 37 12 02 5 30 30 EA [...] ti OR 37 SI 64 PA ve MS 21 20 20 DE DM N 41 [...] ti OR 37 SI 64 PA ve MS 21 20 20 DE DM N 41 10 10 A HC 0 PH G L AR 1, MA 00 CY 0 MG OF TA CY BL NT ET HI AN A CT 37 12 12 5 30 30 EA [...] ti NO 23 SI [address] 75 20 20 DE I IL 77 [...] 3- 3- 00 SI 45 EY ve MS 04 20 20 DE N 81 10 10 MS HC 0 PH CH L AR AE [...] 20 20 DE ID 50 10 10 MS E 1 PH CH 2 AR AE MG MA L CY S TA BL OF ET CY NT HI AN A MS 00 10 11 1 30 30 EA 19 MS Ac RT 09 -2 -[address] 69 LL ti AZ 37 6- 9- 00 SI 79 ER ve AP 20 20 20 DE IN 65 10 10 CA E 6 PH RO 15 AR L MA J MG CY TA OF BL ET CY NT HI AN A 59 10 11 1 30 30 EA 19 MS Ac 76 -2 -[address] 69 LL ti 24 6- 9- 00 SI 80 ER ve 80 20 20 DE 20 10 10 CA 5 PH RO AR L MA J CY OF CY NT HI AN A CT 00 11 11 0 20 5 EA [...] 5- 5- 00 SI [address] 75 20 20 DE I IL 77 [...] CY NT TA HI B AN A MS 00 10 10 1 30 30 EA 19 MS Ac RT 09 -2 -[address] 69 LL ti AZ 37 6- 6- 00 SI 79 ER ve AP 20 20 20 DE IN 65 10 10 CA E 6 PH RO 15 AR L MA J MG CY TA OF BL ET CY NT HI AN A 59 10 10 1 30 30 EA 19 MS Ac 76 -2 -[address] 69 [...] 89 20 20 DE 00 10 10 MS 5 PH CH AR AE MA L CY S OF CY NT HI AN A ME 00 09 09 0 21 6 EA 19 GA Ac TH 78 -2 -[address] 33 IN ti YL 15 8- 8- 00 SI [address] 02 20 20 DE ED 20 10 10 MS NI 7 PH CH SO AR AE [...] D OF CY NT HI AN A CT 00 09 09 0 10 2 EA [...] 04 07 2 12 30 EA [address] 55 -2 -[address] 26 LL ti OX 50 0- 8- 00 SI 30 ER ve YZ 30 20 20 0 DE IN 20 10 10 CA E 2 PH RO PA AR L M MA J 50 CY MG OF CA CY P NT HI AN A CI 65 04 07 2 45 23 EA 17 MS Ac TA 86 -2 -[address] 26 LL ti LO 20 0- 8- 00 SI [address] 00 20 20 DE AM 70 10 [...] 2- 8- 00 SI [address] 75 20 20 DE DM [place] 77 10 10 A 0 PH G 2. AR 5 MA MG CY TA OF BL ET CY NT HI AN A ME 00 06 07 2 30 30 EA 17 RA Ac TO 37 -0 -[address] 80 2- 8- 00 SI 83 PA [...] 04 06 2 12 30 EA [address] 55 -2 -[address] 26 LL ti OX 50 0- 2- 00 SI 30 ER ve YZ 30 20 20 0 DE IN 20 10 10 CA E 2 PH RO PA AR L M MA J 50 CY MG OF CA CY P NT HI AN A CI 55 04 06 2 45 23 EA 17 MS Ac TA 11 -2 -[address] 26 LL ti LO 10 0- 2- 00 SI [address] 34 20 20 DE AM 40 10 [...] 2- 2- 00 SI [address] 75 20 20 DE DM [place] 77 10 10 A 0 PH G 2. AR 5 MA MG CY TA OF BL ET CY NT HI AN A ME 00 06 06 2 30 30 EA 17 RA Ac TO 37 -0 -[address] 80 2- 2- 00 SI 83 PA [...] 04 04 2 12 30 EA [address] 55 -2 -[address] [...] 34 20 20 DE 90 10 10 MS 1 PH CH AR AE MA L [...] 2- 6- 00 SI [address] 34 20 20 DE ai AM 40 [...] BL ET CY NT HI AN A CT 37 11 03 5 30 30 EA [...] -3 -[address] 80 0- 6- 00 SI 78 PA [...] 017 K/mm3 ed monocyt 06:05 e count Gooding % = 6.6 % 1.7-9.3 complet 017 [...] 017 K/mm3 ed monocyt 14:20 e count Gooding % = 6.7 % 1.7-9.3 complet 017 [...] (ER) 3 14:31 3 15:18 [facility]
--- OUTSIDE RECORDS SUMMARY | 2017-08-06 20:31 | External Medical Summary Rpt | CCD ---
Demographics Preferred Language [place]ian Marital Status Unknown Adventism Affiliation Unknown Race Unknown Ethnic Group Unknown Author Author , DAIN GAUTAM Address Unknown Phone Immunization No patient found.
--- OUTSIDE RECORDS SUMMARY | 2017-08-06 20:31 | External Medical Summary Rpt | CCD ---
Demographics Preferred Language Barbadian Marital Status Unknown Evangelical Affiliation Unknown Race Unknown Ethnic Group Unknown Author Author , DAIN GAUTAM Address Unknown Phone Immunization No patient found.
--- OUTSIDE RECORDS SUMMARY | 2017-08-06 20:32 | External Medical Summary Rpt ---
Author Author DA[facility] Avila, [employer] Organization [employer] Address Unknown Phone Unavailable Results Glucose [Mass/volume] in Capillary blood by Glucometer Observa Value Referen Units Interpr Notes Date tion ce etation Range Glucose 70 - 110 mg/dl Normal No Aug 05 [Mass/vol informati 2016 6:30 ume] in on in AM Capillary source blood by data Glucomete r Basic metabolic panel in Blood Observa Value Referen Units Interpr Notes Date ti ce etation Range Urea 7 - 18 mg/dL Normal No Aug 05 nitrogen informati 2016 5:20 [Mass/vol on in AM ume] in source Serum or data Plasma Calcium 8.5 - mg/dL Normal No Aug 05 [Mass/vol 10.1 informati 2016 5:20 ume] in on in AM Serum or source Plasma data Chloride 98 - 107 mmoL/L Normal No Aug 05 [Moles/vo informati 2016 5:20 lume] in on in AM Serum or source Plasma data Carbon 21.0 - mmoL/L Normal No Aug 05 dioxide, 32.0 informati 2016 5:20 total on in AM [Moles/vo source lume] in data Serum or Plasma Creatinin 0.70 - mg/dL Normal No Aug 05 e 1.30 informati 2016 5:20 [Mass/vol on in AM ume] in source Serum or data Plasma Creatinin 50 - 200 ML/MIN Normal No Aug 05 e renal informati 2016 5:20 clearance on in AM source predicted data by Cockcroft -Gault formula Estimated >60 ML/MIN No REFERENCE Aug 05 informati RANGE: 2017 5:20 glomerula on in >60 AM r source ML/MIN/1. filtratio data 73 SQUARE n rate METERSIf (GF this patient is -A merican, then multiply theresult by 1.210. Glucose 74 - 106 mg/dL Normal No Aug 05 [Mass/vol informati 2016 5:20 ume] in on in AM Serum or source Plasma data Potassium 3.5 - 5.1 mmoL/L Low No Aug 05 informati 2017 5:20 [Moles/vo on in AM lume] in source Serum or data Plasma Sodium 136 - 145 mmoL/L Normal No Aug 05 [Moles/vo informati 2016 5:20 lume] in on in AM Serum or source Plasma data Glucose [Mass/volume] in Capillary blood by Glucometer Observa Value Referen Units Interpr Notes Date tion ce etation Range Glucose 70 - 110 mg/dl Normal No Aug 04 [Mass/vol informati 2016 8:37 ume] in on in PM Capillary source blood by data Glucomete r Glucose [Mass/volume] in Capillary blood by Glucometer Observa Value Referen Units Interpr Notes Date tion ce etation Range Glucose 70 - 110 mg/dl Normal No Aug 04 [Mass/vol informati 2016 6:04 ume] in on in PM Capillary source blood by data Glucomete r Glucose [Mass/volume] in Capillary blood by Glucometer Observa Value Referen Units Interpr Notes Date tion ce etation Range Glucose 70 - 110 mg/dl No No Aug 04 [Mass/vol informati informati 2016 6:08 ume] in on in on in AM Capillary source source blood by data data Glucomete r Basic metabolic panel in Blood Observa Value Referen Units Interpr Notes Date tion ce etation Range Urea 7 - 18 mg/dL No No Aug 04 nitrogen informati informati 2017 6:05 [Mass/vol on in on in AM ume] in source source Serum or data data Plasma Calcium 8.5 - mg/dL Normal No Aug 04 [Mass/vol 10.1 informati 2017 6:05 ume] in on in AM Serum or source Plasma data Chloride 98 - 107 mmoL/L Normal No Aug 04 [Moles/vo informati 2017 6:05 lume] in on in AM Serum or source Plasma data Carbon 21.0 - mmoL/L Normal No Aug 04 dioxide, 32.0 informati 2017 6:05 total on in AM [Moles/vo source lume] in data Serum or Plasma Creatinin 0.70 - mg/dL Normal No Aug 04 e 1.30 informati 2017 6:05 [Mass/vol on in AM ume] in source Serum or data Plasma Creatinin 50 - 200 ML/MIN Normal No Aug 04 e renal informati 2017 6:05 clearance on in AM source predicted data by Cockcroft -Gault formula Estimated >60 ML/MIN No REFERENCE Aug 04 informati RANGE: 2017 6:05 glomerula on in >60 AM r source ML/MIN/1. filtratio data 73 SQUARE n rate METERSIf (GF this patient is -A merican, then multiply theresult by 1.210. Glucose 74 - 106 mg/dL Normal No Aug 04 [Mass/vol informati 2016 6:05 ume] in on in AM Serum or source Plasma data Potassium 3.5 - 5.1 mmoL/L Normal No Aug 04 inform2016 6:05 [Moles/vo on in AM lume] in source Serum or data Plasma Sodium 136 - 145 mmoL/L Normal Aug 04 [Moles/vo informati 2016 6:05 lume] in on in AM Serum or source Plasma data CBC W Auto Differential panel in Blood Observa Value Referen Units Interpr Notes Date tion ce etation Range Basophils 0 - 0.2 K/MM3 Normal No Aug 04 inform2016 6:05 [#/volume on in AM ] in source Blood by data Automated count Basophils 0.1 - 2.0 % Normal No Aug 04 / informati 2016 6:05 leukocyte on in AM s in source Blood by data Automated count Eosinophi 0.0 - 0.4 K/mm3 Normal No Aug 04 ls informati 2016 6:05 [#/volume on in AM ] in source Blood by data Automated count Eosinophi 0.1 - % Normal Aug 04 ls/100 12.0 informati 2016 6:05 leukocyte on in AM s in source Blood by data Automated count Granulocy 1.3 - 8.0 K/mm3 Normal No Aug 04 vivek informati 2016 6:05 [#/volume on in AM ] in source Blood by data Automated count Granulocy 37.0 - % Normal No Aug 04 vivek/100 80.0 informati 2016 6:05 leukocyte on in AM s in source Blood by data Automated count Hematocri 42.0 - % Normal No Aug 04 t [Volume 52.0 informati 2016 6:05 on in AM Fraction] source of Blood data Hemoglobi 14.1 - g/dL Normal No Aug 04 n 18.0 informati 2016 6:05 [Mass/vol on in AM ume] in source Blood data Lymphocyt 0.7 - 4.5 K/mm3 Normal No Aug 04 es informati 2017 6:05 [#/volume on in AM ] in source Unspecifi data ed specimen by Automated count Lymphocyt 10 - 50 % Normal No Aug 04 es informati 2017 6:05 [#/volume on in AM ] in source Unspecifi data ed specimen by Automated count Erythrocy 27 - 31.2 pg Normal No Aug 04 te mean inform2016 6:05 corpuscul on in AM ar source hemoglobi data n [Entitic mass] Erythrocy 31.8 - g/dl Normal No Aug 04 te mean 35.4 informati 2017 6:05 corpuscul on in AM ar source hemoglobi data n concentra tion [Mass/vol ume] by Automated count Erythrocy 82.2 - fl Normal No Aug 04 te mean 97.8 informati 2016 6:05 corpuscul on in AM ar volume source [Entitic data volume] by Automated count Monocytes 0.1 - 1.0 K/mm3 Normal No Aug 04 informati 2017 6:05 [#/volume on in AM ] in source Blood by data Automated count Monocytes 1.7 - 9.3 % Normal No Aug 04 /100 informati 2017 6:05 leukocyte on in AM s in source Blood by data Automated count Platelet 7.4 - fl Normal No Aug 04 mean 10.4 informati 2017 6:05 volume on in AM [Entitic source volume] data in Blood by Automated count Platelets 142 - 424 K/mm3 Normal No Aug 04 informati 2017 6:05 [#/volume on in AM ] in source Blood data Erythrocy 4.6 - 6.2 M/mm3 Normal No Aug 04 vivek informati 2017 6:05 [#/volume on in AM ] in source Amniotic data fluid Erythrocy 11.5 - % Normal No Aug 04 te 17.5 informati 2017 6:05 distribut on in AM ion width source [Entitic data volume] by Automated count Leukocyte 4.8 - K/MM3 Normal No Aug 04 s 10.8 informati 2016 6:05 [#/volume on in AM ] in source Blood data Glucose [Mass/volume] in Capillary blood by Glucometer Observa Value Referen Units Interpr Notes Date tion ce etation Range Glucose 70 - 110 mg/dl High No Aug 03 [Mass/vol informati 2017 9:04 ume] in on in PM Capillary source blood by data Glucomete r Glucose [Mass/volume] in Capillary blood by Glucometer Observa Value Referen Units Interpr Notes Date tion ce etation Range Glucose 70 - 110 mg/dl Normal No Aug 03 [Mass/vol informati 2016 5:48 ume] in on in PM Capillary source blood by data Glucomete r Comprehensive metabolic 2000 panel in Serum or Plasma Observa Value Referen Units Interpr Notes Date tion ce etation Range Albumin/G 1.1 - 1.8 No Normal No Aug 03 lobulin informati informati 2016 2:20 [Mass on in on in PM ratio] in source source Serum or data data Plasma Albumin 3.4 - 5.0 gm/dL Normal No Aug 03 [Mass/vol informati 2016 2:20 ume] in on in PM [...] mg/dL High No Aug 03 nitrogen informati 2016 2:20 [Mass/vol on in PM ume] in source Serum or data Plasma Calcium 8.5 - mg/dL Normal No Aug 03 [Mass/vol 10.1 informati 2016 2:20 ume] in on in PM Serum or source Plasma data Chloride 98 - 107 mmoL/L Normal No Aug 03 [Moles/vo informati 2016 2:20 lume] in on in PM [...] Estimated >60 ML/MIN No REFERENCE Aug 03 informati RANGE: 2017 2:20 glomerula on in >60 PM r source ML/MIN/1. filtratio data 73 SQUARE n rate METERSIf (GF this patient is -A merican, then multiply theresult by 1.210. Globulin 1.3 - 3.2 gm/dL Normal No Aug 03 [Mass/vol 2016 2:20 ume] in on in PM Serum source data Glucose 74 - 106 mg/dL Normal Aug 03 [Mass/vol 2016 2:20 ume] in on in PM Serum or source Plasma data Potassium 3.5 - 5.1 mmoL/L Normal No Aug 032016 2:20 [Moles/vo on in PM [...] Plasma Protein 6.4 - 8.2 gm/dL Normal No Aug 03 [Mass/vol 2016 2:20 ume] in on in PM Serum or source Plasma data CBC W Auto Differential panel in Blood Observa Value Referen Units Interpr Notes Date tion ce etation Range Basophils 0 - 0.2 K/MM3 Normal Aug [id number] 2:20 [#/volume on in PM ] in source Blood by data Automated count Basophils 0.1 - 2.0 % Normal No Aug [id number] 2:20 leukocyte on in PM s in source Blood by data Automated count Eosinophi 0.0 - 0.4 K/mm3 Normal No Aug 03 ls 2016 2:20 [#/volume on [...] 6.2 M/mm3 Normal No Aug 03 vivek 2016 2:20 [...]
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
[2017-08-06 20:44] LABS: LYMPH # 2.6 K/mm3 (0.7-4.5); LYMPH % 25.7 % (10-50)
[2017-08-06 20:55] LABS: HEMOGLOBIN 17.1 g/dL (14.1-18.0)
[2017-08-06 21:05] LABS: BUN 24 mg/dL (7-18); GFR (ESTIMATED) 28 ML/MIN (>60)
[2017-08-06 22:22] VITALS: BP 143/67
--- NOTE | 2017-08-07 09:19 | RADIOLOGY REPORT PS360 ---
CHEST-PORTABLE COMPARISON: Portable upright chest 08/03/2017 HISTORY: Shortness of breath TECHNIQUE: Portable upright chest FINDINGS: The lung bradley are fairly well-expanded and appear clear of infiltrate. There is no pleural fluid. Cardiac size is normal and the vascularity is normal. IMPRESSION: Negative portable chest
== END 2017-08-06 22:25 | disposition home or self-care (01) ==
LOC: ER 20:04
PROVIDERS: Emergency Medicine
DX: I95.9 Hypotension, unspecified (principal); N28.9 Disorder of kidney and ureter, unspecified; I25.10 Atherosclerotic heart disease of native coronary artery without angina pectoris; I25.2 Old myocardial infarction; I10 Essential (primary) hypertension; E78.5 Hyperlipidemia, unspecified; J44.9 Chronic obstructive pulmonary disease, unspecified; K21.9 Gastro-esophageal reflux disease without esophagitis; E11.9 Type 2 diabetes mellitus without complications; F41.9 Anxiety disorder, unspecified; F32.9 Major depressive disorder, single episode, unspecified; Z95.5 Presence of coronary angioplasty implant and graft; Z79.51 Long term (current) use of inhaled steroids; Z86.73 Personal history of transient ischemic attack (TIA), and cerebral infarction without residual deficits; Z88.0 Allergy status to penicillin; Z91.09 Other allergy status, other than to drugs and biological substances; Z79.82 Long term (current) use of aspirin; Z79.4 Long term (current) use of insulin; Z79.899 Other long term (current) drug therapy
CPT/HCPCS: J2405